=== PATIENT | female | born 1960 | race Caucasian/White ===

== ENCOUNTER 2024-11-21 08:55 | Outpatient (CLI) | payer OTHER, SELFPAY ==
--- OUTSIDE RECORDS SUMMARY | 2024-11-21 09:22 | XMS_ITS | CONTINUITY OF CARE DOCUMENT ---
Author Name stephencolbyjamaica Address Unknown Organization [facility] Address [address] [address] [place] [address] Phone [phone] Care Team Providers Care Supervisor Metal Cans Name Role Phone Shayan CORREA, Tameka Unavailable Shayan CORREA, Tameka Unavailable [phone] NAMRATA CORREA, JENSEN Unavailable [phone] INSURANCE PROVIDERS Payer name Policy type / Coverage type Shepherd red libertarian ID [facility] [employer] [id number]
--- NOTE | 2024-11-21 09:58 | ECG_ITS ---
Test Date: 2024-11-21 10:25:46 Measurements Intervals Batson Rate: 63 P: 53 NM: 169 QRS: 38 QRSD: 92 T: 75 QT: 406 QTc: 418 Interpretive Statements SINUS RHYTHM NONSPECIFIC T-WAVE ABNORMALITY No previous ECG available for comparison Electronically Signed On 11-21-2024 16:34:00 BEET END SUPERVISOR by Jl Estrada M.D.
[2024-11-21 10:41] LABS: Basophils Absolute Auto 0.1 K/mm3 (0.0-0.1); Basophils Percent Auto 0.8 % (0.2-1.2); Eosinophils Absolute Auto 0.6 K/mm3 (0-0.3); Eosinophils Percent Auto 6.4 % (0-4.4); Hematocrit 46.6 % (37.0-47.0); Hemoglobin 14.9 g/dL (12.0-15.0); Immature Granulocyte Absolute 0.04 K/mm3 (0.00-0.031); Immature Granulocyte Percent A 0.4 % (0-0.5); Lymphocytes Absolute Auto 3.32 K/mm3 (0.9-3.2); Mean Platelet Volume 10.3 fl (7.4-10.4); Monocytes Absolute Auto 0.5 K/mm3 (0.1-0.6); Monocytes Percent Auto 5.5 % (2.6-8.5); Neutrophils Absolute Auto 4.7 K/mm3 (1.3-6.7); Neutrophils Percent Auto 50.9 % (45.5-73.1); Platelet Count Result 373 k/mm3 (150-375); Red Blood Count 4.96 M/mm3 (4.2-5.4); Red Cell Distribution Width 14.1 % (11.5-14.5); White Blood Count 9.2 K/mm3 (4.5-10.0)
[2024-11-21 11:08] LABS: Urine Cotinine NEGATIVE
[2024-11-21 11:10] LABS: Hemoglobin A1C 5.6 % (<5.7)
[2024-11-21 15:35] LABS: Albumin Level 3.9 g/dL (3.5-5.1); Anion Gap 8 mmol/L (4-12); Blood Urea Nitrogen 31 mg/dL (7-17); Calcium 9.1 mg/dL (8.4-10.2); Carbon Dioxide 27 mmol/L (22-30); Chloride 106 mmol/L (98-107); Estimated Glomerular Filt Rate 57; Glucose 84 mg/dL (65-110); Potassium 4.2 mmol/L (3.4-5.0); Sodium 141 mmol/L (137-145)
== END 2024-11-21 08:56 | disposition home or self-care (01) ==
LOC: ANHSURGERY 08:59
PROVIDERS: PCP Family Medicine; Visit Provider Orthopaedic Surgery
DX: Z01.818 Encounter for other preprocedural examination (principal); M16.12 Unilateral primary osteoarthritis, left hip; R94.31 Abnormal electrocardiogram [ECG] [EKG]
CPT/HCPCS: 80048; 80307; 82040; 83036; 85025; 86850; 86900; 86901; 87081; 87181; 93005

== ENCOUNTER 2024-12-02 16:15 | Inpatient (IN) | payer OTHER, SELFPAY ==
[2024-11-21 09:15] VITALS: BMI 34.2
--- NOTE | 2024-11-21 09:35 | PC.NURSE ---
Report to the Outpatient Waiting Room, entrance under the green pavilion located off [facility], at time __6:00AM on date ___12/01/24____. Planned Procedure Time: __7:30AM .? Time changes happen often and if your time is changed the preop area will call you the afternoon before. - You and your visitor will be asked to self-screen and do not enter if you have any COVID symptoms. Please call surgeon if you need to reschedule. - A mask is optional within the hospital at this time. Patients may have clear liquids (water, carbonated beverages, clear teas, apple juice) until 3 hours prior to surgery (4:30AM) with a maximum of 20 ounces. - No food from midnight until time of surgery and no smoking, or chewing tobacco (or any form of nicotine). No chewing gum, candy or mints. Take only the following medications with a SIP of water on the morning of surgery: ___AMLODIPINE, FLUOXETINE DO NOT STOP ANY OF YOUR OTHER PRESCRIPTION MEDICATIONS PRIOR TO SURGERY EXCEPT THE FOLLOWING Hold all vitamins and supplements for 3 days per anesthesiologist. Medications to discontinue per physician HOLD IBUPROFEN (NSAIDS) 7 DAYS PRE-OP PER DR HUDSON Date to take last dose 11/23/24 Please no make-up, nail french, hairspray, perfume, deodorant, or body powder the day of surgery.? No jewelry (including any body piercings) or valuables the day of surgery, leave them at home.? Please take a shower or bath the night before, or the morning of, surgery with an antibacterial soap.? Wear comfortable, loose fitting clothing.? - Jewelry must be removed prior to entering the operating room.? Rings and piercings that are not removed may be cut off. - The hospital will not accept responsibility for valuables.? - Please leave all valuables, including medications, at home the day of surgery. If you are going home after surgery, a licensed buggy driver must drive you home.? - NO public transportation without another adult if you receive anesthesia. - We recommend that an adult stay with you for 24 hours following discharge. - We also recommend that you do not drive, make important decision, drink alcoholic beverages, or take any drugs that were not prescribed by your health care provider for at least 24 hours after your discharge time. Follow any additional instructions given to you from your surgeon. HIBICLENS SHOWER NIGHT BEFORE AND MORNING OF SURGERY. Telephone instructions given to ___PATIENT and asked if any additional questions and then verbalized understanding. Patient advised to call surgeon office or pre surgery nurse liaison [phone] if any additional questions.
[2024-11-21 10:02] VITALS: BP 148/88; PULSE 68; RESP 16; TEMP 37; O2SAT 95
--- NOTE | 2024-11-28 11:21 | PM.IMHP ---
H&P: HPI History of Present Illness Date/Time: 11/28/24 11:21 Chief Complaint: DJD left hip Narrative: 62-year-old female who presents today for left anterior total hip arthroplasty. She has had severe osteoarthritis in this left hip for more than 3 years. She has been treating nonsurgically with bldn-qlr-[id number] anti-inflammatories. At this point patient is having more significant symptoms on a daily basis. Hip pain is causing her to avoid activities due to the pain. This point patient has advanced osteoarthritis in the left hip. She feels this point she is ready proceed with total hip arthroplasty rather than continue nonsurgical treatment. Review of Systems Review of Systems: All systems reviewed & are unremarkable except as noted in HPI and below PMFSH Past Medical History Medical History Primary osteoarthritis of left hip Cigarette nicotine dependence Major depressive disorder, recurrent severe without psychotic features Primary hypertension Surgical History Surgical History History of intestinal surgery 2013 for bowel obstruction History of hysterectomy 1995 Family History Family History Sibling Cerebrovascular accident Social History Social History Smoking packs per day: 1 Smoking cigarettes per day: 20.0 Years smoked: 52 Smoking pack-years: 52.00 Smoking status: Former smoker Tobacco type: cigarettes Smoking end date: 10/24/24 Additional smoking assessment comments: NON-NICTONE VAPE X6/DAY Alcohol intake: never Alcohol use details: SOCIAL DRINKER IN PAST Substance use: current Substance use type: marijuana Other substance usage details: SMOKES MARIJUANA NIGHTLY Do You Feel Safe in your Home?: Yes Lack of Transportation: No Lack of Food: Sometimes True Current Housing: I Have Housing Concerned About Future Housing: No Difficulty Paying Gas/Electric Bills: No Difficulty Paying for Meds: No Currently Unemployed: No Education: High School Diploma/GED Difficulty w/ Childcare or Family Care: No Living arrangements: with family Additional living arrangements comments: [place] Occupation/Education: retired Gender identity (if verbalized by the patient): Female Sexual Orientation (if Verbalized by the Patient): Straight or Heterosexual Spiritual care concerns: No Meds Home Medications and Allergies Home Medications ?Medication ?Instructions ?Recorded ?Confirmed ?Type amlodipine 5 mg tablet 5 mg PO DAILY #90 tabs 10/31/24 11/25/24 Rx fluoxetine 20 mg capsule 20 mg PO DAILY #90 caps 10/31/24 11/25/24 Rx lisinopril 10 mg tablet 10 mg PO DAILY #90 tabs 10/31/24 11/25/24 Rx ibuprofen 800 mg tablet 800 mg PO TID PRN pain #90 tabs 11/06/24 11/25/24 Rx mupirocin 2 % topical ointment 1 applic topical BID #22 grams 11/24/24 11/25/24 Rx Allergies Allergy/AdvReac Type Severity Reaction Status Date / Time Penicillins Allergy Unknown Hives, Verified 11/25/24 13:45 FACE SWELLING Exam Narrative: 64-year-old female she is 5 ft 6 203 lb BMI is 32.3. Patient walks with a prominent limp. She has a 15 degree flexion contracture at in the left knee as well as a valgus deformity. She also has a 15 degree flexion contracture of the left hip. She has a positive Stinchfield maneuver which causes her severe anterior lateral hip pain. Left hip flexes to 60 internally rotates to 0 externally rotates to 20 all with anterior lateral hip pain. She has normal abduction strength in lateral position. Moderate to severe tenderness over the greater trochanter. Skin around the hip and groin crease are normal. 2+ dorsalis pedis and posterior tibial artery pulse palpable. No edema in lower extremities Resp: Auscultation: clear to auscultation bilaterally Cardio: Rate: regular rate Rhythm: regular rhythm Assessment and Plan Assessment and plan (1) Primary osteoarthritis of left hip: Code(s): M16.12 - Unilateral primary osteoarthritis, left hip Status: Acute Plan 64-year-old female who has advanced osteoarthritis left hip. At this point patient is having severe symptoms on a daily basis and feels she is ready proceed with total hip arthroplasty at this point. Surgical procedures well as the risks and complications were discussed in detail questions were answered and we will proceed. Patient will stop her ibuprofen and any other aspirin products 1 week prior to surgery. She will see her primary care doctor for pre-surgical clearance. Her nasal swab did grow oxacillin sensitive Staph aureus and she has been D colonizing. Hemoglobin 14.9 platelets are 373. Chem panel her BUN was elevated at 31 creatinine 0.99 GFR was 57
[2024-12-01] VITALS (15 sets, daily range): BP systolic 103–146; BP diastolic 64–83; PULSE 74–96; RESP 14–28; TEMP 36.2–36.9; O2SAT 92–100; BMI 36.2
--- OUTSIDE RECORDS SUMMARY | 2024-12-01 00:23 | XMS_ITS | CONTINUITY OF CARE DOCUMENT ---
Author Name stephencolbyjamaica Address Unknown Organization [facility] Address [address] [place] [address] Phone [phone] Care Team Providers Care Attendance Officer Name Role Phone Shayan CORREA, Tameka Unavailable [phone] Shayan CORREA, Tameka Unavailable NAMRATA CORREA, JENSEN Unavailable INSURANCE PROVIDERS Payer name Policy type / Coverage type Camilla red republican ID [facility] [employer] company [id number]
[2024-12-01] MEDS: VANCOMYCIN 1,500 MG/NS 500 ML 1,500 MG/500 ML BAG 250 MG IVPB (06:45)
[2024-12-01] MEDS: ACETAMINOPHEN 500 MG TABLET 1000 MG PO (06:45)
[2024-12-01] MEDS: LACTATED RINGERS 1,000 ML 30 ML IV CONT ×2 (06:45→12:30)
[2024-12-01] MEDS: TRANEXAMIC ACID 1,000MG/ISO100 1,000 MG/100 ML BAG 200 MG IVPB (06:45)
--- NOTE | 2024-12-01 07:16 | WPDHPUPDATE1 ---
History and Physical Update Update Date/Time: 12/01/24 07:16 History and Physical has been reviewed, including an updated exam of the patient. There are NO changes in the patient's condition. Risks, benefits, and alternatives have been discussed and questions answered. Patient agrees to proceed with procedure.
--- NOTE | 2024-12-01 07:28 | P.PNAN_ITS ---
Anes - Initial Pre Proc Eval Procedure: Operation Date: 12/01/24 07:30 Proposed Procedures p Left Total Hip Arthroplasty, Anterior Approach - Graham Domingo MD Date/Time: 12/01/24 07:28 Surgeon: Graham Domingo MD Pre Op Diagnosis: O A Lt Hip Patient Data Age: 64 Gender: F Height: 1.65 m Weight: 98.8 kg Last Vital Signs Temp 98.5 F 12/01/24 06:45 Pulse 74 12/01/24 06:45 Resp 14 12/01/24 06:45 BP 136/83 12/01/24 06:45 Pulse Ox 100 12/01/24 06:45 O2 Del Method Room Air 12/01/24 06:45 Allergies Allergy/AdvReac Type Severity Reaction Status Date / Time Penicillins Allergy Unknown Hives, Verified 12/01/24 07:22 FACE SWELLING Home Medications ?Medication ?Instructions ?Recorded ?Confirmed ?Type amlodipine 5 mg tablet 5 mg PO DAILY #90 tabs 10/31/24 12/01/24 Rx fluoxetine 20 mg capsule 20 mg PO DAILY #90 caps 10/31/24 12/01/24 Rx lisinopril 10 mg tablet 10 mg PO DAILY #90 tabs 10/31/24 12/01/24 Rx ibuprofen 800 mg tablet 800 mg PO TID PRN pain #90 tabs 11/06/24 12/01/24 Rx mupirocin 2 % topical ointment 1 applic topical BID #22 grams 11/24/24 11/25/24 Rx Patient hx anesthesia problems: none Family hx anesthesia problems: none Results Review: All pre-operative results and documents have been reviewed as part of the pre- operative evaluation. [facility]LY [facility], [facility] Past Medical History Medical History Primary osteoarthritis of left hip Cigarette nicotine dependence Major depressive disorder, recurrent severe without psychotic features Primary hypertension Surgical History Surgical History History of intestinal surgery 2013 for bowel obstruction History of hysterectomy 1995 Family History Family History Sibling Cerebrovascular accident Social History Social History Smoking packs per day: 1 Smoking cigarettes per day: 20.0 Years smoked: 52 Smoking pack-years: 52.00 Smoking status: Former smoker Tobacco type: cigarettes Smoking end date: 10/24/24 Additional smoking assessment comments: NON-NICTONE VAPE X6/DAY Alcohol intake: never Alcohol use details: SOCIAL DRINKER IN PAST Substance use: current Substance use type: marijuana Other substance usage details: SMOKES MARIJUANA NIGHTLY Do You Feel Safe in your Home?: Yes Lack of Transportation: No Lack of Food: Sometimes True Current Housing: I Have Housing Concerned About Future Housing: No Difficulty Paying Gas/Electric Bills: No Difficulty Paying for Meds: No Currently Unemployed: No Education: High School Diploma/GED Difficulty w/ Childcare or Family Care: No Living arrangements: with family Additional living arrangements comments: [employer] Occupation/Education: retired Gender identity (if verbalized by the patient): Female Sexual Orientation (if Verbalized by the Patient): Straight or Heterosexual Spiritual care concerns: No Anes - Eval Final PreProcedure Day of Procedure 12/01/24 07:28 Patient weight: obese Heart: regular rate and rhythm Lungs: clear to auscultation Airway: Mallampati scale class II Neurological: alert and oriented Last oral intake: >/= 8 hours ASA classification: III Emergent: no Anesthetic plan: proceed Anesthesia type and monitoring: general ETT and standard monitoring Results Review: All pre-operative results and documents have been reviewed as part of the pre-operative evaluation. Informed Consent: The patient's anesthetic plan and its attendant risks and benefits were discussed with the patient/family/POA. Questions were solicited and answers provided to the satisfaction of the patient/family/POA.
[2024-12-01] MEDS: ceFAZolin 2 GM/D5W 50 ML 2 GM/50 ML BAG IVPB ×2 (07:34→17:40)
[2024-12-01] MEDS: ceFAZolin SODIUM 1 GM VIAL 3 GM (08:46)
[2024-12-01] MEDS: SODIUM CHLORIDE 0.9% IV 37.7 ML, MORPHINE SULFATE INJ (*CRX) 2 MG, ROPivacaine HCL 1% 2... INFILTRATE (08:47)
[2024-12-01] MEDS: ceFAZolin SODIUM 1 GM VIAL 2 GM IV PUSH (11:52)
[2024-12-01] MEDS: TRANEXAMIC ACID 1,000 MG/10 ML AMPUL 1000 MG IV PUSH (11:54)
[2024-12-01] MEDS: KETOROLAC 15 MG/ML VIAL (*BKC) IV PUSH ×2 (11:55→18:27)
[2024-12-01] MEDS: LACTATED RINGERS 1,000 ML 20 ML IV CONT (12:30)
--- NOTE | 2024-12-01 13:00 | PM.OP ---
Procedure Note - Brief Procedure Note - Brief Date of procedure: 12/01/24 O A Lt Hip Procedure performed: Left anterior total hip arthroplasty Surgeon: JEAN Reno Findings: 62-year-old female who underwent left anterior total hip arthroplasty on 12/01. I was involved in the procedure including positioning the patient on the OR table and 1st assisting through the time surgery. Total time spent was 4 hours
--- NOTE | 2024-12-01 13:14 | W.PM.PROC2 ---
Procedure Note - Detailed Date of Procedure 12/01/24 Pre-op Diagnosis O A Lt Hip, obesity with BMI of Post-op Diagnosis Same Procedure Performed Direct anterior approach left total hip arthroplasty Surgeon Graham Domingo MD Verifying Specialist Marnie Anesthesia General Description of Procedure There is extra difficulty with the procedure due to her obesity which added approximately 1 hour of surgical time to the procedure. Patient was brought to the operating room and general anesthesia was administered. She received 2 g of Ancef weight based vancomycin 1 g of TXA preoperatively. The feet were padded boots applied SCDs were applied and running during the procedure. She was transferred to the [facility] table. The left hip was prepped and draped in the usual fashion a 10 cm longitudinal incision was made starting 3 cm lateral to the ASIS. Dissection was carried down to the fascia over the tensor fascia bonnie which was longitudinally incised elevated off the anterior 50% of the TFL muscle. The interval between tensor fascia bonnie and rectus femoris was developed and crossing branches of ascending lateral femoral circumflex vessels were isolated ligated with suture divided. The capsule was markedly distended with fluid. She had prominent ileocapsularis on the anterior capsule which was carefully elevated and retractor placed anteromedial to the capsule. The hip abducted and the gluteus minimus was elevated off the lateral capsule which was difficult because of the distention of the capsule. Inverted T capsulotomy was performed. There is a large effusion of yellow fluid. There was thickened edematous synovium which was moderately erythematous making me suspicious that she may have an inflammatory arthritis such as rheumatoid arthritis and we will test her after surgery. Femoral neck osteotomy was performed. The femoral head was markedly enlarged at its periphery due to osteophyte formation which made extraction more difficult. I removed the the distal 40% of the femoral head piecemeal which allowed us to slide the thinner wait for out the anterior incision. There was severe wear on the femoral head. The acetabulum showed eburnation posteriorly and superiorly with absence of the posterior and posterior superior rim. The posterior wall was intact. The femur was externally rotated extended allowing better access to the femoral insertion of the lateral capsule which was released and interval between conjoined tendon and piriformis tendon was incised which allowed the piriformis to flip which improved the femoral mobility quite a bit. With the leg back in the horizontal position traction external rotation acetabulum was exposed labrum excised we medialized through the large medial acetabular osteophyte with a 44 Reamer and reamed up to 51 and a light reaming to 52 which reached the anterior rim. Reaming was carried out under fluoroscopic guidance. We had removed some of the anterior and anterior inferior osteophyte earlier. Trial 52 shell fit properly. At proper anteversion it tucked just under the anterior rim and was about 6 or 7 mm proud posterior superiorly at 40? of abduction. I could see that we could medialized an additional 1-2 mm and we inserted the 51 Reamer to accomplish this. The 52 pinnacle shell was chosen and impacted and fully seated at 40? of abduction and appropriate anteversion which left a shell about 3 or 4 mm under the anterior rim and about 7 mm proud of the posterior superior remnant of posterior wall as the posterior superior rim was deficient in that area. An excellent Press-Fit was achieved. The cancellous bone within the acetabulum was somewhat soft but the rim was sclerotic and the rim fit was solid. Two screws were placed in the ilium for additional fixation both achieving excellent purchase. Thirty-six inner diameter acetabular liner was placed. The leg was externally rotated and extended with the table hook for exposure. The cancellous bone within the femur was extraordinarily soft particularly laterally under the greater trochanter. It compressed fully with light digital pressure in fact. Cortical thickness of the medial calcar was normal for age. We broached up to a size 7 which still had a fair amount of rotational play. The size 8 was difficult to seat fully as it impinged in the intramedullary canal distally. The size 4 5 canal Reamer was inserted to a little past full depth and with this accomplished, the size 8 broach could be seated to the anticipated depth. On trialing I could see that we were still about 4 or 5 mm proud of our templated broach height and the hip was tight. We planned to use the size 1.5 head on the standard neck to restore proper offset. The broach was countersunk 5 mm and on read trialing, leg lengths were appropriate with the left leg appearing about 1 or 2 mm longer than the right and since the right hip had icjh-[id number] contact superiorly, this was felt to be appropriate length estimation. She had complete stability and ample shock. The 8 broach had complete torsional stability. We completed the calcar planing process and inserted the size 8 Actis stem which was fully seated without difficulty no cracks in the calcar. I elected to use cancellous bone from the femoral head to fill the void lateral to the proximal shoulder of the femoral component to hopefully improve bone stock in this area. The 1.5 x 36 ceramic head was impacted on the clean and dried trunnion which was then reduced after thorough irrigation with antibiotic solution. Stability and soft tissue tension confirmed. Final fluoroscopic x-rays of the hip showed no radiographic complication. The anterior capsular flap was allowed to rest insight to as we had resected the majority of the lateral flap for exposure. The fascia over the tensor fascia bonnie repaired with running 1. Vicryl drain deep in the subcu skin closed with 2 subcutaneous Vicryl and glue EBL was 500 cc and she was given 250 back as Cell Saver. Additional 2 g of Ancef and 1 g TXA given time wound closure. There were no complications. She was transferred postop recovery room in stable condition. [facility] Billing Surgery - Charge Forward: Surgery Billing (Left total hip arthroplasty. Extra difficulty due to obesity.)
[2024-12-01] MEDS: fentaNYL CITRATE INJ (*CRX) 100 MCG/2 ML VIAL 25 MCG IV PUSH (13:26)
[2024-12-01] MEDS: ACETAMINOPHEN 325 MG TABLET 650 MG PO ×3 (17:07→21:12)
[2024-12-01] MEDS: oxyCODONE HCL (*CRX) 5 MG TAB IR PO ×2 (17:07→18:28)
[2024-12-01] MEDS: SENNA/DOCUSATE SODIUM TABLET 2 TAB PO (17:07)
[2024-12-01] MEDS: VANCOMYCIN 1,000 MG/NS 250 ML 1,000 MG/250 ML BAG 250 MG IVPB (18:29)
[2024-12-01] MEDS: FAMOTIDINE 20 MG TABLET PO (21:13)
[2024-12-02] VITALS (10 sets, daily range): BP systolic 105–138; BP diastolic 67–89; PULSE 73–90; RESP 16–20; TEMP 35.7–37.2; O2SAT 92–95
--- NOTE | ~2024-12-02 | XR_ITS ---
EXAMINATION: XR chest 1V portable DATE: 12/03/2024 10:55 INDICATION: Shortness of breath and increasing oxygen requirement TECHNIQUE: frontal view of the chest was obtained. COMPARISON: Chest radiograph dated 12/02/2024 FINDINGS: There are persistent focal airspace opacities at the medial aspect of the bilateral lower lung zones with slight worsening on the left. No pulmonary edema, pleural effusion or pneumothorax. Heart size i s normal. Moderate to severe degenerative skeletal changes at the spine and bilateral shoulders. IMPRESSION: 1. Persistent airspace opacities in the bilateral lower lung zones with slight progression on the lef t which could represent atelectasis and/or pneumonia. Reviewed, dictated and finalized at location A. IMPRESSION: 1. Persistent airspace opacities in the bilateral lower lung zones with slight progression on the left which could represent atelectasis and/or pneumonia.
--- NOTE | ~2024-12-02 | XR_ITS ---
XR chest 1V portable 12/02/2024 10:45 Indication: New oxygen demand. Procedure: AP portable chest Comparison: No prior studies for comparison. Findings: Shallow inspiration. Bibasilar airspace disease, compatible with pneumonia. No pleural effu adriana, edema or pneumothorax. Heart size normal. Impression: 1: Bibasilar pneumonia. Reviewed, dictated and finalized at location B. Impression: 1: Bibasilar pneumonia.
--- NOTE | ~2024-12-02 | XR_ITS ---
XR hip LT 1V w AP pelvis Ordering provider: Graham Domingo MD History: . POST OP LEFT ANTERIOR APPROACH HIP . Comparison: None. FINDINGS: BONES: No acute fracture or dislocation. HIP JOINT SPACES: Left hip arthroplasty. Severe right hip osteoarthritic changes. PUBIC SYMPHYSIS: Normal. SOFT TISSUES: Normal. IMPRESSION: No acute osseous abnormality pelvis and left hip area. Left hip arthroplasty. Severe right hip osteoa rthritic changes. Reviewed, dictated and finalized at location A. IMPRESSION: No acute osseous abnormality pelvis and left hip area. Left hip arthroplasty. S evere right hip osteoarthritic changes.
--- NOTE | ~2024-12-02 | XR_ITS ---
EXAMINATION: XR surgery orthopedic DATE: 12/01/2024 12:35 INDICATION: Anterior approach left total hip arthroplasty TECHNIQUE: 3 fluoroscopic images of the left hip were obtained during procedure performed by Dr. Rachna olivo. Radiologist was not present for the imaging or procedure. The amount of fluoroscopy time used du ring this procedure was 0.9 minutes. COMPARISON: 11/04/2023 FINDINGS: Interval resection of the left femoral head and neck and placement of a noncemented left total hip ar throplasty which appears well seated in near-anatomic alignment in the frontal projection. The acetab ular component is affixed with at least 2 screws. No fracture noted visualized bones. Expected lucent soft tissue gas at the operative bed. IMPRESSION: 1. Fluoroscopy utilized during placement of a noncemented left total hip arthroplasty with expected a ppearance. Reviewed, dictated and finalized at location A. IMPRESSION: 1. Fluoroscopy utilized during placement of a noncemented left total hip arthro plasty with expected appearance.
[2024-12-02] MEDS: ceFAZolin 2 GM/D5W 50 ML 2 GM/50 ML BAG IVPB ×2 (00:32→05:48)
[2024-12-02] MEDS: KETOROLAC 15 MG/ML VIAL (*BKC) IV PUSH (00:33)
[2024-12-02] MEDS: oxyCODONE HCL (*CRX) 5 MG TAB IR PO ×4 (00:33→14:31)
[2024-12-02] MEDS: VANCOMYCIN 1,000 MG/NS 250 ML 1,000 MG/250 ML BAG 250 MG IVPB (05:47)
[2024-12-02] MEDS: ACETAMINOPHEN 325 MG TABLET 650 MG PO ×5 (05:48→22:12)
[2024-12-02 06:46] LABS: Basophils Percent Auto 0.4 % (0.2-1.2); Eosinophils Percent Auto 0.1 % (0-4.4); Hematocrit 37.1 % (37.0-47.0); Hemoglobin 11.6 g/dL (12.0-15.0); Immature Granulocyte Absolute 0.02 K/mm3 (0.00-0.031); Immature Granulocyte Percent A 0.3 % (0-0.5); Lymphocytes Absolute Auto 2.13 K/mm3 (0.9-3.2); Lymphocytes Percent Auto 27.3 % (18.3-44.2); Mean Corpuscular HGB Conc 31.3 g/dl (32-36); Mean Corpuscular Hemoglobin 30.4 pg (26-34); Mean Corpuscular Volume 97.1 fl (80-100); Mean Platelet Volume 10.6 fl (7.4-10.4); Monocytes Absolute Auto 0.5 K/mm3 (0.1-0.6); Monocytes Percent Auto 6.3 % (2.6-8.5); Neutrophils Absolute Auto 5.1 K/mm3 (1.3-6.7); Neutrophils Percent Auto 65.6 % (45.5-73.1); Platelet Count Result 304 k/mm3 (150-375); Red Blood Count 3.82 M/mm3 (4.2-5.4); Red Cell Distribution Width 14.2 % (11.5-14.5); White Blood Count 7.8 K/mm3 (4.5-10.0)
--- NOTE | 2024-12-02 06:56 | PM.PNORT ---
Subjective Subjective Date/Time Seen: 12/02/24 06:56 Interval history: Postop day 1 patient is alert. She is afebrile vital signs are stable. Cbc is noted. Chem panel still pending also rheumatoid factor and anti CCP are pending. Patient's drain is out. Dressing was changed. Neurovascularly she is intact.. Patient has been up to the restroom overnight and is comfortable. She did not walk with therapy yesterday, she was not alert enough from anesthesia for them to be comfortable having her try to walk yesterday. This morning she is alert and very clear headed. Plan will be to have the pain therapy this morning and if she is comfortable she will be discharged home late this morning. If she feels she needs additional they until this afternoon and work again with therapy and then be discharged this afternoon. Objective Data Vital Signs Vital Signs: Vital Signs - 24 hr 12/01/24 12:30 12/01/24 12:45 12/01/24 13:00 Temperature 97.5 F L Pulse Rate 96 94 93 Respiratory Rate 28 H 21 H 21 H Blood Pressure 146/76 H 126/72 120/69 Pulse Oximetry 93 94 94 Oxygen Delivery Simple Face Mask Simple Face Mask Simple Face Mask Oxygen Flow Rate 6 6 6 12/01/24 13:15 12/01/24 13:30 12/01/24 13:45 Temperature Pulse Rate 88 90 91 Respiratory Rate 22 H 20 18 Blood Pressure 108/70 106/65 109/64 Pulse Oximetry 94 96 94 Oxygen Delivery Simple Face Mask Room Air Room Air Oxygen Flow Rate 6 12/01/24 14:00 12/01/24 14:15 12/01/24 14:55 Temperature 97.5 F L Pulse Rate 89 90 89 Respiratory Rate 14 20 18 Blood Pressure 106/71 113/69 113/64 Pulse Oximetry 92 94 92 Oxygen Delivery Nasal Cannula Nasal Cannula Oxygen Flow Rate 2 2 12/01/24 15:10 12/01/24 15:40 12/01/24 16:13 Temperature 97.1 F L 97.4 F L 97.3 F L Pulse Rate 83 87 86 Respiratory Rate 16 16 16 Blood Pressure 103/65 120/75 118/72 Pulse Oximetry 93 95 94 Oxygen Delivery Oxygen Flow Rate 12/01/24 16:28 12/01/24 20:13 12/02/24 00:13 Temperature 97.3 F L 97.6 F Pulse Rate 87 83 81 Respiratory Rate 16 18 18 Blood Pressure 108/71 111/71 Pulse Oximetry 95 93 94 Oxygen Delivery Nasal Cannula Oxygen Flow Rate 2 12/02/24 04:13 Temperature 96.7 F L Pulse Rate 90 Respiratory Rate 18 Blood Pressure 138/89 Pulse Oximetry 92 Oxygen Delivery Oxygen Flow Rate Intake/Output Intake/Output: Intake & Output 11/29/24 11/30/24 12/01/24 12/02/24 23:59 23:59 23:59 23:59 Intake Total 800 50 Output Total 30 900 Balance 770 -850 Meds/Results Medications: Active Medications Generic Name Dose Route Start Last Admin Trade Name Freq PRN Reason Stop Dose Admin Acetaminophen 650 mg 12/01/24 14:00 12/02/24 05:48 Acetaminophen 325 Mg Tablet PO 650 mg Q4H JENNIFER Administration Amlodipine Besylate 5 mg 12/02/24 09:00 Amlodipine Besylate 5 Mg Tablet PO DAILY JENNIFER Apixaban 2.5 mg 12/02/24 09:00 Apixaban 2.5 Mg Tablet PO Q12HR JENNIFER Celecoxib 200 mg 12/02/24 09:00 Celecoxib 200 Mg Capsule PO DAILY JENNIFER Cephalexin HCl 500 mg 12/02/24 12:00 Cephalexin 500 Mg Capsule PO Q6HR JENNIFER Diphenhydramine HCl 25 mg 12/01/24 14:28 Diphenhydramine Hcl Inj 50 Mg/Ml Vial IV PUSH Q6H PRN Itching Famotidine 20 mg 12/01/24 21:00 12/01/24 21:13 Famotidine 20 Mg Tablet PO 20 mg Q12HR JENNIFER Administration Fluoxetine HCl 20 mg 12/02/24 09:00 Fluoxetine Hcl 20 Mg Capsule PO DAILY JENNIFER Cefazolin Sodium 2 gm in 50 mls @ 100 mls/hr 12/01/24 15:00 12/02/24 05:48 Ancef 2 Gm/D5w 50 Ml IVPB 12/02/24 07:29 100 mls/hr Q8H JENNIFER Administration Vancomycin HCl 1,000 mg in 250 mls @ 250 mls/hr 12/01/24 18:00 12/02/24 05:47 Vancomycin 1,000 Mg/Ns 250 Ml IVPB 12/02/24 06:59 250 mls/hr Q12H JENNIFER Administration Morphine Sulfate 2 mg 12/01/24 14:28 Morphine Sulfate (*Crx) 2 Mg/Ml Inj IV PUSH Q2H PRN Breakthrough Pain Rated 4-6 or NPO Naloxone HCl 0.1 mg 12/01/24 14:28 Naloxone Hcl 0.4 Mg/Ml Vial IV PUSH Q2M PRN Opiate Reversal Ondansetron HCl 4 mg 12/01/24 14:28 Ondansetron Inj 4 Mg/2 Ml Vial IV PUSH Q4H PRN Nausea And Vomiting Oxycodone HCl 5 mg 12/01/24 15:00 12/02/24 05:51 Oxycodone Hcl (*Crx) 5 Mg Tab Ir PO 5 mg Q4H JENNIFER Administration Oxycodone HCl 5 mg 12/01/24 14:28 Oxycodone Hcl (*Crx) 5 Mg Tab Ir PO Q4H PRN Pain Rated 7-10 Polyethylene Glycol 17 gm 12/02/24 09:00 Polyethylene Glycol 3350 17 Gm Powd.Pack PO QAM JENNIFER Senna/Docusate Sodium 2 tab 12/01/24 17:00 12/01/24 17:07 Senna/Docusate Sodium Tablet PO 2 tab BID JENNIFER Administration Radiology Results: ITS Impressions Hip/Pelvis X-Ray 12/01/24 12:57 IMPRESSION: No acute osseous abnormality pelvis and left hip area. Left hip arthroplasty. Severe right hip osteoarthritic changes. Intraoperative X-Ray 12/01/24 13:00 IMPRESSION: 1. Fluoroscopy utilized during placement of a noncemented left total hip arthroplasty with expected appearance. Labs Labs: Laboratory Results - last 24 hr 12/02/24 06:04 WBC 7.8 RBC 3.82 L Hgb 11.6 L D Hct 37.1 MCV 97.1 MCH 30.4 MCHC 31.3 L RDW 14.2 Plt Count 304 MPV 10.6 H Immature Gran % (Auto) 0.3 Neut % (Auto) 65.6 Lymph % (Auto) 27.3 [place] % (Auto) 6.3 Eos % (Auto) 0.1 Baso % (Auto) 0.4 Lymph # (Auto) 2.13 [place] # (Auto) 0.5 Eos # (Auto) 0.0 Baso # (Auto) 0.0 Abs Immat Gran (auto) 0.02 Absolute Neuts (auto) 5.1 Absolute Nucleated RBC 0.000 Nucleated RBC % 0.0
[2024-12-02 06:58] LABS: Anion Gap 6 mmol/L (4-12); Blood Urea Nitrogen 20 mg/dL (7-17); Calcium 7.9 mg/dL (8.4-10.2); Carbon Dioxide 29 mmol/L (22-30); Chloride 107 mmol/L (98-107); Estimated CRCL calculation 98 ml/min; Estimated Glomerular Filt Rate > 60; Glucose 129 mg/dL (65-110); Potassium 3.7 mmol/L (3.4-5.0); Sodium 142 mmol/L (137-145)
[2024-12-02 07:10] LABS: Rheumatoid Factor 15.3 IU/ML (<12)
[2024-12-02] MEDS: FAMOTIDINE 20 MG TABLET PO ×2 (09:38→22:13)
[2024-12-02] MEDS: polyethylene glycoL 3350 17 GM POWD.PACK PO (09:38)
[2024-12-02] MEDS: SENNA/DOCUSATE SODIUM TABLET 2 TAB PO ×2 (09:38→17:46)
[2024-12-02] MEDS: CELECOXIB 200 MG CAPSULE PO (09:39)
[2024-12-02] MEDS: APIXABAN 2.5 MG TABLET PO ×2 (09:39→22:11)
[2024-12-02] MEDS: FLUoxetine HCL 20 MG CAPSULE PO (09:40)
[2024-12-02 11:20] LABS: Alveolar/Arterial O2 Gradient 81.3 mmHg; Base Excess ABG 3.6 mEq/l (+/-2.0); Fractional Inspired Oxygen 28 %; HCO3 ABG 28.5 mEq/l (22.0-26.0); Oxygen Content ABG 15.1 %vol (16.0-22.0); Oxygen Saturation ABG 93.1 % (95.0-100.0); Oxyhemoglobin 91.7 % THb (90.0-100.0); PCO2 ABG 44.9 mmHg (35.0-45.0); PO2 ABG 65.4 mmHg (80.0-100.0); PO2 FiO2 Ratio Arterial Blood 2.34 %; Total Hemoglobin 11.7 g/dL (12.0-18.0); pH ABG 7.421 (7.350-7.450)
[2024-12-02 11:21] LABS: Device NASAL CANNULA; Modified Allen's Test Pass; Site Drawn LEFT RADIAL
--- NOTE | 2024-12-02 13:34 | P.CONIM_ITS ---
Assessment and Plan Assessment and plan (1) Primary osteoarthritis of left hip: Code(s): M16.12 - Unilateral primary osteoarthritis, left hip Status: Acute Assessment and Plan: * patient is postop day 1 from a left total hip arthroplasty with Dr. Domingo * PT and OT ordered * continue hip precautions * continue incentive spirometry while awake * continue pain control * continue Eliquis for DVT prophylaxis * full weight-bearing status (2) Pneumonia: Code(s): J18.9 - Pneumonia, unspecified organism Status: Acute Assessment and Plan: * CXR shown bibasilar pneumonia * Currently requiring 2L NC * Continue IS while awake * Duonebs ordered * Levaquin 750mg daily ordered. (3) Major depressive disorder, recurrent severe without psychotic features: Code(s): F33.2 - Major depressive disorder, recurrent severe without psychotic features Status: Acute Assessment and Plan: * continue Prozac (4) Anxiety: Code(s): F41.9 - Anxiety disorder, unspecified Status: Acute Assessment and Plan: * continue Prozac (5) Primary hypertension: Code(s): I10 - Essential (primary) hypertension Status: Acute Assessment and Plan: * blood pressure ranging 108/70 to 118/72 * continue amlodipine (6) Cigarette nicotine dependence: Qualifiers: Substance use status: uncomplicated Qualified Code(s): F17.210 - Nicotine dependence, cigarettes, uncomplicated Code(s): F17.210 - Nicotine dependence, cigarettes, uncomplicated Status: Acute Assessment and Plan: * 1 pack per day for 52 years, quit this past October. HPI Date of Consult Consult date: 12/02/24 Requesting Physician: Graham Domingo MD Primary Care Provider: Cayden Sullivan MD Consult Narrative Narrative: Jennie Cedeno is a 64 year old female with a significant past medical history of major depressive disorder, hypertension, nicotine dependence, marijuana abuse, osteoarthritis who presented for an elective left total hip arthroplasty performed by Dr. Domingo. We were consulted for medical management while inpatient. Patient states that her pain is well controlled and is rating it about 4/10. She denies any fever, chills, nausea, vomiting, diarrhea, abdominal pain, chest pain, or shortness of breath. She is currently on 2L NC. She denies any recent illness or exposure to sick contacts. Review of Systems 2 Review of Systems: All systems reviewed & are unremarkable except as noted in HPI and below PMFSH Past Medical History Medical History Osteoarthritis Anxiety Primary osteoarthritis of left hip Cigarette nicotine dependence Major depressive disorder, recurrent severe without psychotic features Primary hypertension Surgical History Surgical History History of bladder suspension procedure History of intestinal surgery 2013 for bowel obstruction History of hysterectomy 1995 Family History Family History Sibling Cerebrovascular accident Social History Social History Smoking packs per day: 20 Smoking cigarettes per day: 400.0 Years smoked: 52 Smoking pack-years: 1040.00 Smoking status: Former smoker Tobacco type: cigarettes Second hand tobacco smoke exposure: No Smoking end date: 10/24/24 Additional smoking assessment comments: NON-NICTONE VAPE X6/DAY Alcohol intake: never Alcohol use details: SOCIAL DRINKER IN PAST Substance use: never Substance use type: marijuana Other substance usage details: SMOKES MARIJUANA NIGHTLY Do You Feel Safe in your Home?: Yes Lack of Transportation: No Lack of Food: Never True Current Housing: I Have Housing Concerned About Future Housing: No Difficulty Paying Gas/Electric Bills: No Difficulty Paying for Meds: No Currently Unemployed: No Education: Don't Know Difficulty w/ Childcare or Family Care: No Living arrangements: with family Additional living arrangements comments: [facility] Occupation/Education: retired Gender identity (if verbalized by the patient): Female Sexual Orientation (if Verbalized by the Patient): Straight or Heterosexual Spiritual care concerns: No Meds Home Medications and Allergies Home Medications ?Medication ?Instructions ?Recorded ?Confirmed ?Type amlodipine 5 mg tablet 5 mg PO DAILY #90 tabs 10/31/24 12/01/24 Rx fluoxetine 20 mg capsule 20 mg PO DAILY #90 caps 10/31/24 12/01/24 Rx lisinopril 10 mg tablet 10 mg PO DAILY #90 tabs 10/31/24 12/01/24 Rx acetaminophen 325 mg tablet 650 mg (2 x 325 mg) PO Q4H #90 tabs 12/02/24 Rx apixaban 2.5 mg tablet (Eliquis) 2.5 mg PO Q12HR #70 tabs 12/02/24 Rx celecoxib 200 mg capsule (Celebrex) 200 mg PO DAILY #10 caps 12/02/24 Rx cephalexin 500 mg capsule 500 mg PO Q6HR #40 caps 12/02/24 Rx oxycodone 5 mg tablet 5 mg PO Q4H PRN pain #40 tabs 12/02/24 Rx polyethylene glycol 3350 17 gram 17 g PO QAM #30 ea 12/02/24 Rx oral powder packet (Miralax) sennosides 8.6 mg-docusate sodium 2 tab-cap (2 x 8.6-50 mg) PO BID 12/02/24 Rx 50 mg tablet (Senokot-S) #60 tabs Allergies Allergy/AdvReac Type Severity Reaction Status Date / Time Penicillins Allergy Unknown Hives, Verified 12/01/24 07:22 FACE SWELLING Vital Signs Vital Signs - 24 hr 12/01/24 13:45 12/01/24 14:00 12/01/24 14:15 Temperature Pulse Rate 91 89 90 Respiratory Rate 18 14 20 Blood Pressure 109/64 106/71 113/69 Pulse Oximetry 94 92 94 Oxygen Delivery Room Air Nasal Cannula Nasal Cannula Oxygen Flow Rate 2 2 12/01/24 14:55 12/01/24 15:10 12/01/24 15:40 Temperature 97.5 F L 97.1 F L 97.4 F L Pulse Rate 89 83 87 Respiratory Rate 18 16 16 Blood Pressure 113/64 103/65 120/75 Pulse Oximetry 92 93 95 Oxygen Delivery Oxygen Flow Rate 12/01/24 16:13 12/01/24 16:28 12/01/24 20:13 Temperature 97.3 F L 97.3 F L Pulse Rate 86 87 83 Respiratory Rate 16 16 18 Blood Pressure 118/72 108/71 Pulse Oximetry 94 95 93 Oxygen Delivery Nasal Cannula Oxygen Flow Rate 2 12/02/24 00:13 12/02/24 04:13 12/02/24 08:02 Temperature 97.6 F 96.7 F L 99.0 F Pulse Rate 81 90 88 Respiratory Rate 18 18 16 Blood Pressure 111/71 138/89 108/70 Pulse Oximetry 94 92 92 Oxygen Delivery Oxygen Flow Rate 12/02/24 09:33 12/02/24 11:51 Temperature 96.7 F L Pulse Rate 78 Respiratory Rate 20 Blood Pressure 113/68 Pulse Oximetry 92 Oxygen Delivery Nasal Cannula Oxygen Flow Rate 2 Exam 2 Narrative: General: In no acute distress, well nourished Head: atraumatic, no encephalopathy Eyes: EOMI, PERRLA, sclera clear ENT: moist mucous membranes, nasal passages clear Neck: supple, no JVD, no adenopathy, trachea midline Cardiac: Normal S1 and S2. No murmur, gallops or friction rubs, peripheral pulses intact. Respiratory: Lungs clear to auscultation, no adventitious lung sounds Gastrointestinal: soft, non-distended, non-tender, normoactive bowel sounds. : voiding without difficulty. Extremities: moves all extremities well, no edema, good ROM, strength 5/5 Skin: clean, dry, intact. No wounds or lesions. Neuro: Alert and oriented x4, cranial nerves intact, no neuro deficits. Psych: normal mood, normal affect, interactive Results Labs 12/02/24 06:04 12/02/24 06:04 Labs: Short CBC 12/02/24 Range/Units 06:04 WBC 7.8 (4.5-10.0) K/mm3 Hgb 11.6 L D (12.0-15.0) g/dL Hct 37.1 (37.0-47.0) % Plt Count 304 (150-375) k/mm3 BMP 12/02/24 06:04 Sodium 142 Potassium 3.7 Chloride 107 Carbon Dioxide 29 BUN 20 H D Creatinine 0.59 L Glucose 129 H Calcium 7.9 L Imaging Radiologist's impression: XR chest 1V portable 12/02/2024 10:45 Indication: New oxygen demand. Procedure: AP portable chest Comparison: No prior studies for comparison. Findings: Shallow inspiration. Bibasilar airspace disease, compatible with pneumonia. No pleural effusion, edema or pneumothorax. Heart size normal. Impression: 1: Bibasilar pneumonia. Reviewed, dictated and finalized at location B. LEXAMINATION: XR surgery orthopedic DATE: 12/01/2024 12:35 INDICATION: Anterior approach left total hip arthroplasty TECHNIQUE: 3 fluoroscopic images of the left hip were obtained during procedure performed by Dr. Domingo. Radiologist was not present for the imaging or procedure. The amount of fluoroscopy time used during this procedure was 0.9 minutes. COMPARISON: 11/04/2023 FINDINGS: Interval resection of the left femoral head and neck and placement of a noncemented left total hip arthroplasty which appears well seated in near- anatomic alignment in the frontal projection. The acetabular component is affixed with at least 2 screws. No fracture noted visualized bones. Expected lucent soft tissue gas at the operative bed. IMPRESSION: 1. Fluoroscopy utilized during placement of a noncemented left total hip arthroplasty with expected appearance. Reviewed, dictated and finalized at location A. Quality VTE Prophylaxis VTE prophylaxis: pharmacologic ordered Hospitalist MIPS Advance Care Plan I have confirmed that the patient's Advanced Care Plan is present, code status is documented, or surrogate decision maker is listed in patient medical record.: Yes Medication Reconciliation I have utilized all available resources to obtain, update and review the patients current medications (includes all prescriptions, OTC, herbals, cannabis, and nutritional supplements).: Yes
[2024-12-02] MEDS: CEPHALEXIN 500 MG CAPSULE PO ×2 (14:31→17:46)
[2024-12-02] MEDS: levoFLOXacin 750 MG TABLET PO (14:31)
--- NOTE | 2024-12-02 14:52 | WPDANESPN ---
Anes - Prog Note Post-Op Date/Time: 12/02/24 14:52 Cardiovascular status: normal Respiratory status: normal Airway patency: baseline Mental status: baseline Post-Op hydration status: normal Vital Signs: Last Vital Signs Temp 96.7 F L 12/02/24 11:51 Pulse 78 12/02/24 11:51 Resp 20 12/02/24 11:51 BP 113/68 12/02/24 11:51 Pulse Ox 92 12/02/24 11:51 O2 Del Method Nasal Cannula 12/02/24 09:33 O2 Flow Rate 2 12/02/24 09:33 Pain Score (VAS): 0/10 I/O: Intake & Output 12/01/24 12/02/24 12/02/24 23:59 07:59 15:59 Intake Total 500 50 600 Output Total 0 900 Balance 500 -850 600 Laboratory Tests 12/02/24 06:04 12/02/24 06:04 12/02/24 12/02/24 06:04 10:59 WBC 7.8 RBC 3.82 L Hgb 11.6 L D Hct 37.1 MCV 97.1 MCH 30.4 MCHC 31.3 L RDW 14.2 Plt Count 304 MPV 10.6 H Immature Gran % (Auto) 0.3 Neut % (Auto) 65.6 Lymph % (Auto) 27.3 [place] % (Auto) 6.3 Eos % (Auto) 0.1 Baso % (Auto) 0.4 Lymph # (Auto) 2.13 [place] # (Auto) 0.5 Eos # (Auto) 0.0 Baso # (Auto) 0.0 Abs Immat Gran (auto) 0.02 Absolute Neuts (auto) 5.1 Absolute Nucleated RBC 0.000 Nucleated RBC % 0.0 Puncture Site Left radial ABG pH 7.421 ABG pCO2 44.9 ABG pO2 65.4 L ABG PO2/FiO2 Ratio 2.34 ABG HCO3 28.5 H ABG O2 Saturation 93.1 L ABG O2 Content 15.1 L ABG Base Excess 3.6 A-a Gradient 81.3 Oxyhemoglobin 91.7 Total Hemoglobin 11.7 L O2 Delivery Device Nasal cannula O2 Liters/Min 2.0 FiO2 28 Sodium 142 Potassium 3.7 Chloride 107 Carbon Dioxide 29 Anion Gap 6 BUN 20 H D Creatinine 0.59 L Estim Creat Clear Calc 98 Estimated GFR > 60 Glucose 129 H Calcium 7.9 L Rheumatoid Factor 15.3 Anti-Cycl Citrul Peptide Pending Post-procedural complaints: none Patient Feedback: Patient satisfied with anesthetic care.
[2024-12-02] MEDS: oxyCODONE HCL (*CRX) 2.5 MG TAB IR PO ×2 (17:47→22:11)
[2024-12-02] MEDS: IPRATROPIUM 0.5 MG/ALBUTEROL SULFATE 2.5 MG AMPUL.NEB 3 ML INHALATION (20:02)
[2024-12-03] VITALS (17 sets, daily range): BP systolic 105–137; BP diastolic 58–75; PULSE 75–88; RESP 12–20; TEMP 36.1–36.7; O2SAT 82–96
[2024-12-03] MEDS: CEPHALEXIN 500 MG CAPSULE PO ×5 (00:26→23:07)
[2024-12-03] MEDS: IPRATROPIUM 0.5 MG/ALBUTEROL SULFATE 2.5 MG AMPUL.NEB 3 ML INHALATION ×4 (02:03→21:00)
[2024-12-03] MEDS: ACETAMINOPHEN 325 MG TABLET 650 MG PO ×5 (06:21→23:07)
[2024-12-03] MEDS: oxyCODONE HCL (*CRX) 2.5 MG TAB IR PO ×5 (06:22→23:07)
--- NOTE | 2024-12-03 07:21 | P.PNOP_ITS ---
Subjective Subjective Date/Time Seen: 12/03/24 07:21 Interval history: Postop day 2 patient is alert. She is afebrile vital signs are stable. Pain overall is well controlled. She was up walking well with therapy yesterday. Patient was not able to maintain her oxygen saturation levels yesterday without at least 2 L of oxygen. Blood gases were done which showed her oxygen level at 64. PCO2 was within normal range. Chest x-ray shows bi basilar pneumonia. Patient was started on breathing treatments as well as Levaquin. She is encouraged use incentive spirometer every hour. Patient at this point is still on nasal cannula. Nursing will try to work on weaning her off the oxygen again today to see if she is able to maintain better oxygen saturation. When she is more stable with regard her saturation she will be discharged home Objective Data Vital Signs Vital Signs: Vital Signs - 24 hr 12/02/24 08:02 12/02/24 09:33 12/02/24 11:51 Temperature 99.0 F 96.7 F L Pulse Rate 88 78 Respiratory Rate 16 20 Blood Pressure 108/70 113/68 Pulse Oximetry 92 92 Oxygen Delivery Nasal Cannula Oxygen Flow Rate 2 12/02/24 16:09 12/02/24 20:06 12/02/24 20:10 Temperature 96.3 F L Pulse Rate 82 73 76 Respiratory Rate 18 18 18 Blood Pressure 105/68 Pulse Oximetry 92 Oxygen Delivery Oxygen Flow Rate 12/02/24 20:14 12/02/24 20:32 12/02/24 23:43 Temperature 97.2 F L 97.8 F Pulse Rate 75 79 Respiratory Rate 18 16 Blood Pressure 108/67 113/73 Pulse Oximetry 94 95 95 Oxygen Delivery Nasal Cannula Oxygen Flow Rate 4 12/03/24 02:03 12/03/24 02:09 12/03/24 03:22 Temperature 97.0 F L Pulse Rate 78 83 82 Respiratory Rate 18 18 16 Blood Pressure 137/75 Pulse Oximetry 93 Oxygen Delivery Oxygen Flow Rate Intake/Output Intake/Output: Intake & Output 11/30/24 12/01/24 12/02/24 12/03/24 23:59 23:59 23:59 23:59 Intake Total 800 960 Output Total 30 900 0 Balance 770 60 0 Meds/Results Medications: Active Medications Generic Name Dose Route Start Last Admin Trade Name Freq PRN Reason Stop Dose Admin Acetaminophen 650 mg 12/01/24 14:00 12/03/24 06:21 Acetaminophen 325 Mg Tablet PO 650 mg Q4H JENNIFER Administration Albuterol/Ipratropium 3 ml 12/02/24 14:00 12/03/24 06:05 Ipratropium 0.5 Mg/Albuterol Sulfate 2.5 Mg Ampul.Neb 3 Ml INHALATION Not Given Q6HRT JENNIFER Amlodipine Besylate 5 mg 12/02/24 09:00 12/02/24 17:52 Amlodipine Besylate 5 Mg Tablet PO Not Given DAILY [facility] Apixaban 2.5 mg 12/02/24 09:00 12/02/24 22:11 Apixaban 2.5 Mg Tablet PO 2.5 mg Q12HR JENNIFER Administration Celecoxib 200 mg 12/02/24 09:00 12/02/24 09:39 Celecoxib 200 Mg Capsule PO 200 mg DAILY JENNIFER Administration Cephalexin HCl 500 mg 12/02/24 12:00 12/03/24 06:22 Cephalexin 500 Mg Capsule PO 500 mg Q6HR JENNIFER Administration Diphenhydramine HCl 25 mg 12/01/24 14:28 Diphenhydramine Hcl Inj 50 Mg/Ml Vial IV PUSH Q6H PRN Itching Famotidine 20 mg 12/01/24 21:00 12/02/24 22:13 Famotidine 20 Mg Tablet PO 20 mg Q12HR JENNIFER Administration Fluoxetine HCl 20 mg 12/02/24 09:00 12/02/24 09:40 Fluoxetine Hcl 20 Mg Capsule PO 20 mg DAILY JENNIFER Administration Levofloxacin 750 mg 12/02/24 14:00 12/02/24 14:31 Levofloxacin 750 Mg Tablet PO 750 mg Q24H JENNIFER Administration Morphine Sulfate 2 mg 12/01/24 14:28 Morphine Sulfate (*Crx) 2 Mg/Ml Inj IV PUSH Q2H PRN Breakthrough Pain Rated 4-6 or NPO Naloxone HCl 0.1 mg 12/01/24 14:28 Naloxone Hcl 0.4 Mg/Ml Vial IV PUSH Q2M PRN Opiate Reversal Ondansetron HCl 4 mg 12/01/24 14:28 Ondansetron Inj 4 Mg/2 Ml Vial IV PUSH Q4H PRN Nausea And Vomiting Oxycodone HCl 5 mg 12/01/24 14:28 12/02/24 09:38 Oxycodone Hcl (*Crx) 5 Mg Tab Ir PO 5 mg Q4H PRN Administration Pain Rated 7-10 Oxycodone HCl 2.5 mg 12/02/24 19:00 12/03/24 06:22 Oxycodone Hcl (*Crx) 2.5 Mg Tab Ir PO 2.5 mg Q4H JENNIFER Administration Polyethylene Glycol 17 gm 12/02/24 09:00 12/02/24 09:38 Polyethylene Glycol 3350 17 Gm Powd.Pack PO 17 gm QAM JENNIFER Administration Senna/Docusate Sodium 2 tab 12/01/24 17:00 12/02/24 17:46 Senna/Docusate Sodium Tablet PO 2 tab BID JENNIFER Administration Radiology Results: ITS Impressions Hip/Pelvis X-Ray 12/01/24 12:57 IMPRESSION: No acute osseous abnormality pelvis and left hip area. Left hip arthroplasty. Severe right hip osteoarthritic changes. Intraoperative X-Ray 12/01/24 13:00 IMPRESSION: 1. Fluoroscopy utilized during placement of a noncemented left total hip arthroplasty with expected appearance. Chest X-Ray 12/02/24 10:46 Impression: 1: Bibasilar pneumonia. Labs Labs: Laboratory Results - last 24 hr 12/02/24 10:59 Puncture Site Left radial ABG pH 7.421 ABG pCO2 44.9 ABG pO2 65.4 L ABG PO2/FiO2 Ratio 2.34 ABG HCO3 28.5 H ABG O2 Saturation 93.1 L ABG O2 Content 15.1 L ABG Base Excess 3.6 A-a Gradient 81.3 Oxyhemoglobin 91.7 Total Hemoglobin 11.7 L O2 Delivery Device Nasal cannula O2 Liters/Min 2.0 FiO2 28
[2024-12-03 07:51] LABS: Basophils Absolute Auto 0.1 K/mm3 (0.0-0.1); Basophils Percent Auto 0.6 % (0.2-1.2); Eosinophils Absolute Auto 0.3 K/mm3 (0-0.3); Eosinophils Percent Auto 3.4 % (0-4.4); Hemoglobin 10.8 g/dL (12.0-15.0); Immature Granulocyte Absolute 0.01 K/mm3 (0.00-0.031); Immature Granulocyte Percent A 0.1 % (0-0.5); Lymphocytes Absolute Auto 2.23 K/mm3 (0.9-3.2); Lymphocytes Percent Auto 24.6 % (18.3-44.2); Mean Corpuscular HGB Conc 31.8 g/dl (32-36); Mean Corpuscular Hemoglobin 30.1 pg (26-34); Mean Corpuscular Volume 94.7 fl (80-100); Mean Platelet Volume 10.1 fl (7.4-10.4); Monocytes Absolute Auto 0.6 K/mm3 (0.1-0.6); Monocytes Percent Auto 6.2 % (2.6-8.5); Neutrophils Absolute Auto 5.9 K/mm3 (1.3-6.7); Neutrophils Percent Auto 65.1 % (45.5-73.1); Platelet Count Result 259 k/mm3 (150-375); Red Blood Count 3.59 M/mm3 (4.2-5.4); Red Cell Distribution Width 14.3 % (11.5-14.5); White Blood Count 9.1 K/mm3 (4.5-10.0)
[2024-12-03 08:23] LABS: Alanine Aminotransferase 14 U/L (6-35); Albumin Level 2.8 g/dL (3.5-5.1); Alkaline Phosphatase 68 U/L (38-126); Anion Gap 1 mmol/L (4-12); Aspartate Amino Transferase 35 U/L (14-36); Bilirubin,Total 0.3 mg/dL (0.2-1.3); Blood Urea Nitrogen 14 mg/dL (7-17); Calcium 7.8 mg/dL (8.4-10.2); Carbon Dioxide 34 mmol/L (22-30); Chloride 104 mmol/L (98-107); Estimated CRCL calculation 129 ml/min; Estimated Glomerular Filt Rate > 60; Glucose 99 mg/dL (65-110); Potassium 2.9 mmol/L (3.4-5.0); Sodium 139 mmol/L (137-145)
[2024-12-03] MEDS: FLUoxetine HCL 20 MG CAPSULE PO (08:36)
[2024-12-03] MEDS: FAMOTIDINE 20 MG TABLET PO ×2 (08:36→20:12)
[2024-12-03] MEDS: CELECOXIB 200 MG CAPSULE PO (08:36)
[2024-12-03] MEDS: APIXABAN 2.5 MG TABLET PO ×2 (08:36→20:11)
[2024-12-03] MEDS: amLODIPine BESYLATE 5 MG TABLET PO (08:36)
--- NOTE | 2024-12-03 09:24 | PCPTNOTE ---
Attempted to see patient for PT, however patient was working with OT.
[2024-12-03] MEDS: POTASSIUM CHLORIDE 20 MEQ ER TABLET 40 MEQ PO ×2 (11:33→14:49)
--- NOTE | 2024-12-03 12:22 | P.PNIM_ITS ---
Progress Note: A&P Assessment and Plan (1) Primary osteoarthritis of left hip: Code(s): M16.12 - Unilateral primary osteoarthritis, left hip Status: Acute Assessment and Plan: * patient is postop day 1 from a left total hip arthroplasty with Dr. Domingo * PT and OT ordered * continue hip precautions * continue incentive spirometry while awake * continue pain control * continue Eliquis for DVT prophylaxis * full weight-bearing status 12/03 * No change to current treatment plan (2) Pneumonia: Code(s): J18.9 - Pneumonia, unspecified organism Status: Acute Assessment and Plan: * CXR shown bibasilar pneumonia * Currently requiring 2L NC * Continue IS while awake * Duonebs ordered * Levaquin 750mg daily ordered. 12/03 * CXR still showing persistent airspace opacities in the bilateral lower lung zones with slight progression on the left * Currently on 5L NC * Continue IS while awake * Continue Duonebs * Continue to wean O2 for an O2 saturation greater than 92% * Respiratory panel was negative for Influenza A and B, RSV, COVID * Mucinex ordered (3) Major depressive disorder, recurrent severe without psychotic features: Code(s): F33.2 - Major depressive disorder, recurrent severe without psychotic features Status: Acute Assessment and Plan: * continue Prozac (4) Anxiety: Code(s): F41.9 - Anxiety disorder, unspecified Status: Acute Assessment and Plan: * continue Prozac (5) Primary hypertension: Code(s): I10 - Essential (primary) hypertension Status: Acute Assessment and Plan: * blood pressure ranging 108/70 to 118/72 * continue amlodipine (6) Cigarette nicotine dependence: Qualifiers: Substance use status: uncomplicated Qualified Code(s): F17.210 - Nicotine dependence, cigarettes, uncomplicated Code(s): F17.210 - Nicotine dependence, cigarettes, uncomplicated Status: Acute Assessment and Plan: * 1 pack per day for 52 years, quit this past October. Time Spent With Patient Time with patient: 15 - 25 minutes Subjective Date/time seen: 12/03/24 12:22 Interval history: Interval history: Jennie Cedeno is a 64 year old female with a significant past medical history of major depressive disorder, hypertension, nicotine dependence, marijuana abuse, osteoarthritis who presented for an elective left total hip arthroplasty performed by Dr. Chayo. We were consulted for medical management while inpatient. Subjective: Patient denies any new complaints today. She states her pain is well controlled. She is currently on 5L NC. Labs and imaging reviewed. Review of Systems Review of Systems: All systems reviewed & are unremarkable except as noted in HPI and below Exam Narrative: General: In no acute distress, well nourished Cardiac: Normal S1 and S2. No murmur, gallops or friction rubs, peripheral pulses intact. Respiratory: Mild crackles in Left lung base, no adventitious lung sounds, currently on 5L NC Gastrointestinal: soft, non-distended, non-tender, normoactive bowel sounds. : voiding without difficulty. Skin: left hip incision with OR dressing in place Neuro: Alert and oriented x4 Objective Data Vital Signs Vital Signs: Vital Signs - 24 hr 12/02/24 16:09 12/02/24 20:06 12/02/24 20:10 Temperature 96.3 F L Pulse Rate 82 73 76 Respiratory Rate 18 18 18 Blood Pressure 105/68 Pulse Oximetry 92 Oxygen Delivery Oxygen Flow Rate 12/02/24 20:14 12/02/24 20:32 12/02/24 23:43 Temperature 97.2 F L 97.8 F Pulse Rate 75 79 Respiratory Rate 18 16 Blood Pressure 108/67 113/73 Pulse Oximetry 94 95 95 Oxygen Delivery Nasal Cannula Oxygen Flow Rate 4 12/03/24 02:03 12/03/24 02:09 12/03/24 03:22 Temperature 97.0 F L Pulse Rate 78 83 82 Respiratory Rate 18 18 16 Blood Pressure 137/75 Pulse Oximetry 93 Oxygen Delivery Oxygen Flow Rate 12/03/24 07:25 12/03/24 07:25 12/03/24 07:35 Temperature Pulse Rate 86 88 Respiratory Rate 20 20 Blood Pressure Pulse Oximetry 92 Oxygen Delivery Nasal Cannula Oxygen Flow Rate 5 12/03/24 08:35 12/03/24 08:40 12/03/24 10:50 Temperature Pulse Rate Respiratory Rate Blood Pressure Pulse Oximetry 82 L 92 Oxygen Delivery Nasal Cannula Nasal Cannula Nasal Cannula Oxygen Flow Rate 2 5 5 Intake/Output Intake/Output: Intake & Output 11/30/24 12/01/24 12/02/24 12/03/24 23:59 23:59 23:59 23:59 Intake Total 800 960 236 Output Total 30 900 0 Balance 770 60 236 Meds/Results Medications: Active Medications Generic Name Dose Route Start Last Admin Trade Name Freq PRN Reason Stop Dose Admin Acetaminophen 650 mg 12/01/24 14:00 12/03/24 10:44 Acetaminophen 325 Mg Tablet PO 650 mg Q4H JENNIFER Administration Albuterol/Ipratropium 3 ml 12/02/24 14:00 12/03/24 07:25 Ipratropium 0.5 Mg/Albuterol Sulfate 2.5 Mg Ampul.Neb 3 Ml INHALATION 3 ml Q6HRT JENNIFER Administration Amlodipine Besylate 5 mg 12/02/24 09:00 12/03/24 08:36 Amlodipine Besylate 5 Mg Tablet PO 5 mg DAILY JENNIFER Administration Apixaban 2.5 mg 12/02/24 09:00 12/03/24 08:36 Apixaban 2.5 Mg Tablet PO 2.5 mg Q12HR JENNIFER Administration Celecoxib 200 mg 12/02/24 09:00 12/03/24 08:36 Celecoxib 200 Mg Capsule PO 200 mg DAILY JENNIFER Administration Cephalexin HCl 500 mg 12/02/24 12:00 12/03/24 11:33 Cephalexin 500 Mg Capsule PO 500 mg Q6HR JENNIFER Administration Diphenhydramine HCl 25 mg 12/01/24 14:28 Diphenhydramine Hcl Inj 50 Mg/Ml Vial IV PUSH Q6H PRN Itching Famotidine 20 mg 12/01/24 21:00 12/03/24 08:36 Famotidine 20 Mg Tablet PO 20 mg Q12HR JENNIFER Administration Fluoxetine HCl 20 mg 12/02/24 09:00 12/03/24 08:36 Fluoxetine Hcl 20 Mg Capsule PO 20 mg DAILY JENNIFER Administration Levofloxacin 750 mg 12/02/24 14:00 12/02/24 14:31 Levofloxacin 750 Mg Tablet PO 750 mg Q24H JENNIFER Administration Morphine Sulfate 2 mg 12/01/24 14:28 Morphine Sulfate (*Crx) 2 Mg/Ml Inj IV PUSH Q2H PRN Breakthrough Pain Rated 4-6 or NPO Naloxone HCl 0.1 mg 12/01/24 14:28 Naloxone Hcl 0.4 Mg/Ml Vial IV PUSH Q2M PRN Opiate Reversal Ondansetron HCl 4 mg 12/01/24 14:28 Ondansetron Inj 4 Mg/2 Ml Vial IV PUSH Q4H PRN Nausea And Vomiting Oxycodone HCl 5 mg 12/01/24 14:28 12/02/24 09:38 Oxycodone Hcl (*Crx) 5 Mg Tab Ir PO 5 mg Q4H PRN Administration Pain Rated 7-10 Oxycodone HCl 2.5 mg 12/02/24 19:00 12/03/24 10:44 Oxycodone Hcl (*Crx) 2.5 Mg Tab Ir PO 2.5 mg Q4H JENNIFER Administration Polyethylene Glycol 17 gm 12/02/24 09:00 12/03/24 08:47 Polyethylene Glycol 3350 17 Gm Powd.Pack PO Not Given QAM JENNIFER Potassium Chloride 40 meq 12/03/24 15:00 Potassium Chloride 20 Meq Er Tablet PO 12/03/24 15:01 ONCE ONE Senna/Docusate Sodium 2 tab 12/01/24 17:00 12/03/24 08:47 Senna/Docusate Sodium Tablet PO Not Given BID JENNIFER Radiology Results: ITS Impressions Hip/Pelvis X-Ray 12/01/24 12:57 IMPRESSION: No acute osseous abnormality pelvis and left hip area. Left hip arthroplasty. Severe right hip osteoarthritic changes. Intraoperative X-Ray 12/01/24 13:00 IMPRESSION: 1. Fluoroscopy utilized during placement of a noncemented left total hip arthroplasty with expected appearance. Chest X-Ray 12/03/24 10:59 IMPRESSION: 1. Persistent airspace opacities in the bilateral lower lung zones with slight progression on the left which could represent atelectasis and/or pneumonia. Labs Labs: Laboratory Results - last 24 hr 12/03/24 07:39 WBC 9.1 RBC 3.59 L Hgb 10.8 L Hct 34.0 L MCV 94.7 MCH 30.1 MCHC 31.8 L RDW 14.3 Plt Count 259 MPV 10.1 Immature Gran % (Auto) 0.1 Neut % (Auto) 65.1 Lymph % (Auto) 24.6 Pepin % (Auto) 6.2 Eos % (Auto) 3.4 Baso % (Auto) 0.6 Lymph # (Auto) 2.23 Pepin # (Auto) 0.6 Eos # (Auto) 0.3 Baso # (Auto) 0.1 Abs Immat Gran (auto) 0.01 Absolute Neuts (auto) 5.9 Absolute Nucleated RBC 0.000 Nucleated RBC % 0.0 Sodium 139 Potassium 2.9 L Chloride 104 Carbon Dioxide 34 H Anion Gap 1 L BUN 14 D Creatinine 0.43 L Estim Creat Clear Calc 129 Estimated GFR > 60 Glucose 99 Calcium 7.8 L Total Bilirubin 0.3 AST 35 ALT 14 Alkaline Phosphatase 68 Total Protein 6.0 L Albumin 2.8 L Quality VTE Prophylaxis VTE prophylaxis: pharmacologic ordered
[2024-12-03 13:13] LABS: Influenza A QL RT-PCR Negative (Negative); Influenza B QL RT-PCR Negative (Negative); RSV RNA, RT-PCR Negative (Negative); SARS-CoV-2 RNA PCR Negative (Negative)
[2024-12-03] MEDS: levoFLOXacin 750 MG TABLET PO (14:47)
[2024-12-03 16:33] LABS: Anti Cyclic Citrullinated Pept <16 UNITS
[2024-12-03] MEDS: guaiFENesin 12 HR 600 MG TABCR 1200 MG PO (20:11)
[2024-12-04] VITALS (15 sets, daily range): BP systolic 108–123; BP diastolic 64–77; PULSE 71–79; RESP 14–20; TEMP 36.4–36.5; O2SAT 84–100
[2024-12-04] MEDS: oxyCODONE HCL (*CRX) 2.5 MG TAB IR PO ×4 (03:18→15:35)
[2024-12-04] MEDS: ACETAMINOPHEN 325 MG TABLET 650 MG PO ×6 (03:18→21:04)
[2024-12-04] MEDS: CEPHALEXIN 500 MG CAPSULE PO ×3 (06:01→17:14)
[2024-12-04] MEDS: IPRATROPIUM 0.5 MG/ALBUTEROL SULFATE 2.5 MG AMPUL.NEB 3 ML INHALATION ×3 (07:41→21:19)
[2024-12-04] MEDS: APIXABAN 2.5 MG TABLET PO ×2 (08:33→20:52)
[2024-12-04] MEDS: amLODIPine BESYLATE 5 MG TABLET PO (08:33)
[2024-12-04] MEDS: FAMOTIDINE 20 MG TABLET PO ×2 (08:33→20:52)
[2024-12-04] MEDS: FLUoxetine HCL 20 MG CAPSULE PO (08:34)
[2024-12-04] MEDS: guaiFENesin 12 HR 600 MG TABCR 1200 MG PO ×2 (08:34→20:52)
[2024-12-04] MEDS: CELECOXIB 200 MG CAPSULE PO (08:34)
[2024-12-04] MEDS: polyethylene glycoL 3350 17 GM POWD.PACK PO (08:34)
--- NOTE | 2024-12-04 12:02 | PM.PNORT ---
Subjective Subjective Date/Time Seen: 12/04/24 12:02 Interval history: Postop day 3 patient is alert. Pain is well controlled. She is still requiring oxygen to maintain her sats. Patient has not had a fever since surgery. She has not had a spike in her white count. She is a long-term smoker and chest x-ray showed either pneumonia or atelectasis. We will consult pulmonology for recommendations. Patient may need to be on home oxygen for the time being. She also may need further workup with pulmonology as well. She has been a long-term smoker who recently quit. Dressing is dry and intact. Patient is getting around well with physical therapy. Once pulmonology has made the recommendations and if they are comfortable with patient being discharged will try to get her discharged this afternoon Objective Data Vital Signs Vital Signs: Vital Signs - 24 hr 12/03/24 14:03 12/03/24 14:29 12/03/24 14:38 Temperature 98.0 F Pulse Rate 75 82 79 Respiratory Rate 16 20 20 Blood Pressure 105/65 Pulse Oximetry 92 Oxygen Delivery Oxygen Flow Rate 12/03/24 16:30 12/03/24 17:00 12/03/24 17:30 Temperature Pulse Rate Respiratory Rate Blood Pressure Pulse Oximetry 94 95 96 Oxygen Delivery Nasal Cannula Nasal Cannula Nasal Cannula Oxygen Flow Rate 4 3 2 12/03/24 18:45 12/03/24 21:00 12/03/24 21:08 Temperature Pulse Rate 76 75 Respiratory Rate 18 18 Blood Pressure Pulse Oximetry 92 Oxygen Delivery Nasal Cannula Oxygen Flow Rate 1 12/03/24 21:49 12/04/24 05:00 12/04/24 05:03 Temperature 97.4 F L Pulse Rate 80 Respiratory Rate 12 Blood Pressure 108/58 L Pulse Oximetry 91 84 L 92 Oxygen Delivery Nasal Cannula Nasal Cannula Oxygen Flow Rate 1 3 12/04/24 06:00 12/04/24 07:39 12/04/24 07:39 Temperature 97.5 F L Pulse Rate 79 76 Respiratory Rate 14 18 Blood Pressure 123/77 Pulse Oximetry 92 91 Oxygen Delivery Nasal Cannula Oxygen Flow Rate 3 12/04/24 07:53 12/04/24 08:00 12/04/24 08:15 Temperature Pulse Rate 48 L Respiratory Rate 20 Blood Pressure Pulse Oximetry 95 91 Oxygen Delivery Nasal Cannula Nasal Cannula Oxygen Flow Rate 3 1 12/04/24 08:25 12/04/24 08:34 12/04/24 08:35 Temperature Pulse Rate Respiratory Rate Blood Pressure Pulse Oximetry 85 L 94 Oxygen Delivery Room Air Nasal Cannula Nasal Cannula Oxygen Flow Rate 3 3 Intake/Output Intake/Output: Intake & Output 12/01/24 12/02/24 12/03/24 12/04/24 23:59 23:59 23:59 23:59 Intake Total 800 960 716 560 Output Total 30 900 0 Balance 770 60 716 560 Meds/Results Medications: Active Medications Generic Name Dose Route Start Last Admin Trade Name Freq PRN Reason Stop Dose Admin Acetaminophen 650 mg 12/01/24 14:00 12/04/24 11:13 Acetaminophen 325 Mg Tablet PO 650 mg Q4H JENNIFER Administration Albuterol/Ipratropium 3 ml 12/02/24 14:00 12/04/24 07:41 Ipratropium 0.5 Mg/Albuterol Sulfate 2.5 Mg Ampul.Neb 3 Ml INHALATION 3 ml Q6HRT JENNIFER Administration Amlodipine Besylate 5 mg 12/02/24 09:00 12/04/24 08:33 Amlodipine Besylate 5 Mg Tablet PO 5 mg DAILY JENNIFER Administration Apixaban 2.5 mg 12/02/24 09:00 12/04/24 08:33 Apixaban 2.5 Mg Tablet PO 2.5 mg Q12HR JENNIFER Administration Celecoxib 200 mg 12/02/24 09:00 12/04/24 08:34 Celecoxib 200 Mg Capsule PO 200 mg DAILY JENNIFER Administration Cephalexin HCl 500 mg 12/02/24 12:00 12/04/24 11:14 Cephalexin 500 Mg Capsule PO 500 mg Q6HR JENNIFER Administration Diphenhydramine HCl 25 mg 12/01/24 14:28 Diphenhydramine Hcl Inj 50 Mg/Ml Vial IV PUSH Q6H PRN Itching Famotidine 20 mg 12/01/24 21:00 12/04/24 08:33 Famotidine 20 Mg Tablet PO 20 mg Q12HR JENNIFER Administration Fluoxetine HCl 20 mg 12/02/24 09:00 12/04/24 08:34 Fluoxetine Hcl 20 Mg Capsule PO 20 mg DAILY JENNIFER Administration Guaifenesin 1,200 mg 12/03/24 21:00 12/04/24 08:34 Guaifenesin 12 Hr 600 Mg Tabcr PO 1,200 mg Q12HR JENNIFER Administration Levofloxacin 750 mg 12/02/24 14:00 12/03/24 14:47 Levofloxacin 750 Mg Tablet PO 12/08/24 14:01 750 mg Q24H JENNIFER Administration Morphine Sulfate 2 mg 12/01/24 14:28 Morphine Sulfate (*Crx) 2 Mg/Ml Inj IV PUSH Q2H PRN Breakthrough Pain Rated 4-6 or NPO Naloxone HCl 0.1 mg 12/01/24 14:28 Naloxone Hcl 0.4 Mg/Ml Vial IV PUSH Q2M PRN Opiate Reversal Ondansetron HCl 4 mg 12/01/24 14:28 Ondansetron Inj 4 Mg/2 Ml Vial IV PUSH Q4H PRN Nausea And Vomiting Oxycodone HCl 5 mg 12/01/24 14:28 12/02/24 09:38 Oxycodone Hcl (*Crx) 5 Mg Tab Ir PO 5 mg Q4H PRN Administration Pain Rated 7-10 Oxycodone HCl 2.5 mg 12/02/24 19:00 12/04/24 11:14 Oxycodone Hcl (*Crx) 2.5 Mg Tab Ir PO 2.5 mg Q4H JENNIFER Administration Polyethylene Glycol 17 gm 12/02/24 09:00 12/04/24 08:34 Polyethylene Glycol 3350 17 Gm Powd.Pack PO 17 gm QAM JENNIFER Administration Senna/Docusate Sodium 2 tab 12/01/24 17:00 12/04/24 08:34 Senna/Docusate Sodium Tablet PO Not Given BID [facility] Radiology Results: ITS Impressions Hip/Pelvis X-Ray 12/01/24 12:57 IMPRESSION: No acute osseous abnormality pelvis and left hip area. Left hip arthroplasty. Severe right hip osteoarthritic changes. Intraoperative X-Ray 12/01/24 13:00 IMPRESSION: 1. Fluoroscopy utilized during placement of a noncemented left total hip arthroplasty with expected appearance. Chest X-Ray 12/03/24 10:59 IMPRESSION: 1. Persistent airspace opacities in the bilateral lower lung zones with slight progression on the left which could represent atelectasis and/or pneumonia. Labs Labs: Laboratory Results - last 24 hr 12/02/24 12/03/24 06:04 12:27 Anti-Cycl Citrul Peptide <16 Influenza A (RT-PCR) Negative Influenza B (RT-PCR) Negative RSV (RT-PCR) Negative SARS-CoV-2 RNA (RT-PCR) Negative
--- NOTE | 2024-12-04 13:30 | P.CONPL_ITS ---
Assessment and Plan Assessment and plan (1) Cigarette nicotine dependence: Qualifiers: Substance use status: uncomplicated Qualified Code(s): F17.210 - Nicotine dependence, cigarettes, uncomplicated Code(s): F17.210 - Nicotine dependence, cigarettes, uncomplicated Status: Acute (2) History of total hip arthroplasty: Code(s): Z96.649 - Presence of unspecified artificial hip joint Status: Acute (3) Obesity: Code(s): E66.9 - Obesity, unspecified Status: Acute (4) Hypoxemia: Code(s): R09.02 - Hypoxemia Status: Acute Assessment and Plan: This 64-year-old female with obesity, who has been a smoker for many years, underwent a hip replacement 3 days ago. Although her recovery has been uneventful, she continues to require oxygen at 3 liters per minute. Her physical examination is essentially unremarkable for any underlying lung disease. There is no history suggestive of a lower respiratory tract infection, although she remains on antibiotics. A chest X-ray raises the question of left lower lobe atelectasis. Basal atelectasis is likely the most probable cause of her persistent hypoxemia, especially considering her prolonged bedridden status and obesity. A pulmonary embolism is doubtful since the patient is appropriately on anticoagulation therapy. The plan is to intensify incentive spirometry to every hour and continue with short-acting bronchodilators every 4-6 hours today. She should spend most of the day out of bed and, if possible, reduce the frequency of pain medication use. Administer Lasix 20 mg IV once for fluid overload. Discontinue antibiotic if that was prescribed for lower respiratory tract infection. A repeat home oxygen evaluation should be conducted in the morning, with the anticipation of improvement by discharge. It is preferable to delay discharge until tomorrow morning, rather than arranging for home oxygen today. She will probably need further workup for underlying COPD or sleep-disordered breathing, although she currently exhibits no symptoms highly suggestive of sleep apnea. I will continue to follow the patient alongside you. History of Present Illness History of Present Illness Consult date: 12/04/24 Chief complaint: O A Lt Hip Narrative: This consultation addresses hypoxemia following hip replacement surgery. The patient has a history of obesity and smoking but no prior lung disease. She underwent hip replacement surgery 3 days ago. Although she resumed ambulation shortly after surgery, she has been spending at least 6 hours in bed during the day, particularly after taking a strong painkiller that causes drowsiness. She requires supplemental oxygen, although she is otherwise ready for discharge. She has been receiving DVT prophylaxis with a direct anticoagulant. Over the past few days, she has not experienced any new respiratory symptoms such as fever, cough, wheezing, orthopnea, or hemoptysis. A chest X-ray taken yesterday suggested probable atelectasis in the lower lobes, particularly on the left. The patient is performing incentive spirometry several times a day. She has never had a lung function assessment in the past and is not on any medications for possible COPD. Upon questioning, she denied having symptoms suggestive of sleep- disordered breathing. The initial chest X-ray showed no active disease, and her total bicarbonate level was not elevated upon admission for surgery. Review of Systems 2 Review of Systems: All systems reviewed & are unremarkable except as noted in HPI and below (HPI and below) FORMERLY [facility], [facility] Past Medical History Medical History Osteoarthritis Anxiety Primary osteoarthritis of left hip Cigarette nicotine dependence Major depressive disorder, recurrent severe without psychotic features Primary hypertension Surgical History Surgical History History of bladder suspension procedure History of intestinal surgery 2013 for bowel obstruction History of hysterectomy 1996 Family History Family History Sibling Cerebrovascular accident Social History Social History Smoking packs per day: 20 Smoking cigarettes per day: 400.0 Years smoked: 52 Smoking pack-years: 1040.00 Smoking status: Former smoker Tobacco type: cigarettes Second hand tobacco smoke exposure: No Smoking end date: 10/24/24 Additional smoking assessment comments: NON-NICTONE VAPE X6/DAY Alcohol intake: never Alcohol use details: SOCIAL DRINKER IN PAST Substance use: never Substance use type: marijuana Other substance usage details: SMOKES MARIJUANA NIGHTLY Do You Feel Safe in your Home?: Yes Lack of Transportation: No Lack of Food: Never True Current Housing: I Have Housing Concerned About Future Housing: No Difficulty Paying Gas/Electric Bills: No Difficulty Paying for Meds: No Currently Unemployed: No Education: Don't Know Difficulty w/ Childcare or Family Care: No Living arrangements: with family Additional living arrangements comments: [place] Occupation/Education: retired Gender identity (if verbalized by the patient): Female Sexual Orientation (if Verbalized by the Patient): Straight or Heterosexual Spiritual care concerns: No Meds Home Medications and Allergies Home Medications ?Medication ?Instructions ?Recorded ?Confirmed ?Type amlodipine 5 mg tablet 5 mg PO DAILY #90 tabs 10/31/24 12/01/24 Rx fluoxetine 20 mg capsule 20 mg PO DAILY #90 caps 10/31/24 12/01/24 Rx lisinopril 10 mg tablet 10 mg PO DAILY #90 tabs 10/31/24 12/01/24 Rx acetaminophen 325 mg tablet 650 mg (2 x 325 mg) PO Q4H #90 tabs 12/02/24 Rx apixaban 2.5 mg tablet (Eliquis) 2.5 mg PO Q12HR #70 tabs 12/02/24 Rx celecoxib 200 mg capsule (Celebrex) 200 mg PO DAILY #10 caps 12/02/24 Rx cephalexin 500 mg capsule 500 mg PO Q6HR #40 caps 12/02/24 Rx oxycodone 5 mg tablet 5 mg PO Q4H PRN pain #40 tabs 12/02/24 Rx polyethylene glycol 3350 17 gram 17 g PO QAM #30 ea 12/02/24 Rx oral powder packet (Miralax) sennosides 8.6 mg-docusate sodium 2 tab-cap (2 x 8.6-50 mg) PO BID 12/02/24 Rx 50 mg tablet (Senokot-S) #60 tabs Allergies Allergy/AdvReac Type Severity Reaction Status Date / Time Penicillins Allergy Unknown Hives, Verified 12/01/24 07:22 FACE SWELLING Vital Signs Vital Signs - 24 hr 12/03/24 14:03 12/03/24 14:29 12/03/24 14:38 Temperature 36.7 C Pulse Rate 75 82 79 Respiratory Rate 16 20 20 Blood Pressure 105/65 Pulse Oximetry 92 Oxygen Delivery Oxygen Flow Rate 12/03/24 16:30 12/03/24 17:00 12/03/24 17:30 Temperature Pulse Rate Respiratory Rate Blood Pressure Pulse Oximetry 94 95 96 Oxygen Delivery Nasal Cannula Nasal Cannula Nasal Cannula Oxygen Flow Rate 4 3 2 12/03/24 18:45 12/03/24 21:00 12/03/24 21:08 Temperature Pulse Rate 76 75 Respiratory Rate 18 18 Blood Pressure Pulse Oximetry 92 Oxygen Delivery Nasal Cannula Oxygen Flow Rate 1 12/03/24 21:49 12/04/24 05:00 12/04/24 05:03 Temperature 36.3 C L Pulse Rate 80 Respiratory Rate 12 Blood Pressure 108/58 L Pulse Oximetry 91 84 L 92 Oxygen Delivery Nasal Cannula Nasal Cannula Oxygen Flow Rate 1 3 12/04/24 06:00 12/04/24 07:39 12/04/24 07:39 Temperature 36.4 C L Pulse Rate 79 76 Respiratory Rate 14 18 Blood Pressure 123/77 Pulse Oximetry 92 91 Oxygen Delivery Nasal Cannula Oxygen Flow Rate 3 12/04/24 07:53 12/04/24 08:00 12/04/24 08:15 Temperature Pulse Rate 48 L Respiratory Rate 20 Blood Pressure Pulse Oximetry 95 91 Oxygen Delivery Nasal Cannula Nasal Cannula Oxygen Flow Rate 3 1 12/04/24 08:25 12/04/24 08:34 12/04/24 08:35 Temperature Pulse Rate Respiratory Rate Blood Pressure Pulse Oximetry 85 L 94 Oxygen Delivery Room Air Nasal Cannula Nasal Cannula Oxygen Flow Rate 3 3 Exam 2 Narrative: GENERAL APPEARANCE: Well developed, well nourished, alert and cooperative, and appears to be in no acute distress while on supplemental oxygen SKIN: Inspection of the skin reveals no rashes, ulcerations or petechiae. HEENT: Sclerae anicteric and conjunctivae pink and moist. Extraocular movements were intact and pupils were equal, round, and reactive to light. The oral mucosa, hard and soft palate, tongue and posterior pharynx were normal. NECK: Supple. There was no thyroid enlargement, and no tenderness, or masses were felt. CHEST: Normal AP diameter and normal contour without any kyphoscoliosis. LUNGS: Clear lungs bilaterally no crackles no wheezing CARDIAC: There was a regular rate and rhythm without any murmurs, gallops, rubs. ABDOMEN: Soft and nontender with normal bowel sounds. There was no organomegaly. LYMPH NODES: No lymphadenopathy was appreciated in the neck. EXTREMITIES: No cyanosis, clubbing or edema. NEUROLOGIC: Alert and oriented x 3. Normal affect. Results Laboratory Findings 12/03/24 07:39 12/03/24 07:39 ABG, PT/INR, D-dimer: ABG ABG pH 7.421 (7.350-7.450) 12/02/24 10:59 ABG pCO2 44.9 mmHg (35.0-45.0) 12/02/24 10:59 ABG pO2 65.4 mmHg (80.0-100.0) L 12/02/24 10:59 ABG O2 Saturation 93.1 % (95.0-100.0) L 12/02/24 10:59 Abnormal lab findings: Abnormal Labs 12/02/24 12/02/24 12/03/24 06:04 10:59 07:39 RBC 3.82 L 3.59 L Hgb 11.6 L D 10.8 L Hct 34.0 L MCHC 31.3 L 31.8 L MPV 10.6 H ABG pO2 65.4 L ABG HCO3 28.5 H ABG O2 Saturation 93.1 L ABG O2 Content 15.1 L Total Hemoglobin 11.7 L Potassium 2.9 L Carbon Dioxide 34 H Anion Gap 1 L BUN 20 H D Creatinine 0.59 L 0.43 L Glucose 129 H Calcium 7.9 L 7.8 L Total Protein 6.0 L Albumin 2.8 L
[2024-12-04] MEDS: levoFLOXacin 750 MG TABLET PO (13:49)
[2024-12-04] MEDS: FUROSEMIDE INJ 40 MG/4 ML VIAL 20 MG IV PUSH (13:49)
--- NOTE | 2024-12-04 16:09 | PM.PNORT ---
Progress Note: A&P Assessment and Plan (1) History of total hip arthroplasty: Qualifiers: Laterality: left Qualified Code(s): Z96.642 - Presence of left artificial hip joint Code(s): Z96.649 - Presence of unspecified artificial hip joint Status: Acute Assessment and Plan: I have reviewed the assistant pressman note. I would agree that the preponderance of evidence would argue for the basilar infiltrates representing atelectasis is the patient has had no temperature of 37? or higher during her hospitalization of multiple temperatures taken, she has had a normal white count during the hospitalization she does not have a cough. Also of note, we observed that her oxygen saturation was only 92% when she wheeled back to the operating room on room air which would be at rest on a gurney. I have discontinued the Levaquin. I have reduced her oxycodone 2.5 mg q.4 hours scheduled to p.r.n. and I did encourage her to use the incentive spirometer every hour while awake. She has good pain control relative to her left hip surgery. Lasix has been ordered for her and hopefully her oxygen requirements will be less in the morning and we will defer discharge until recommended by assistant pressman. Her rheumatoid factor was minimally elevated at 15.3 normal is less than 12. Her anti CCP was less than 16 so this is completely negative which would argue against seropositive knee arthritis. We or these tests because she did a fair amount of synovitis and she has arthritis in both knees and both hips. It is possible that the extensive synovitis might be related to the unusually advanced nature of her hip arthritis with quite a bit of bone loss. Of course the negative test do not rule out seronegative rheumatoid arthritis we will keep an eye on her for other symptoms such is hand or foot pain her other joints a tenosynovitis that would prompt referral to a lockstitch shoulder joiner. Subjective Subjective Date/Time Seen: 12/04/24 16:09 Objective Data Vital Signs Vital Signs: Vital Signs - 24 hr 12/03/24 16:30 12/03/24 17:00 12/03/24 17:30 Temperature Pulse Rate Respiratory Rate Blood Pressure Pulse Oximetry 94 95 96 Oxygen Delivery Nasal Cannula Nasal Cannula Nasal Cannula Oxygen Flow Rate 4 3 2 12/03/24 18:45 12/03/24 21:00 12/03/24 21:08 Temperature Pulse Rate 76 75 Respiratory Rate 18 18 Blood Pressure Pulse Oximetry 92 Oxygen Delivery Nasal Cannula Oxygen Flow Rate 1 12/03/24 21:49 12/04/24 05:00 12/04/24 05:03 Temperature 36.3 C L Pulse Rate 80 Respiratory Rate 12 Blood Pressure 108/58 L Pulse Oximetry 91 84 L 92 Oxygen Delivery Nasal Cannula Nasal Cannula Oxygen Flow Rate 1 3 12/04/24 06:00 12/04/24 07:39 12/04/24 07:39 Temperature 36.4 C L Pulse Rate 79 76 Respiratory Rate 14 18 Blood Pressure 123/77 Pulse Oximetry 92 91 Oxygen Delivery Nasal Cannula Oxygen Flow Rate 3 12/04/24 07:53 12/04/24 08:00 12/04/24 08:15 Temperature Pulse Rate 78 Respiratory Rate 20 Blood Pressure Pulse Oximetry 95 91 Oxygen Delivery Nasal Cannula Nasal Cannula Oxygen Flow Rate 3 1 12/04/24 08:25 12/04/24 08:34 12/04/24 08:35 Temperature Pulse Rate Respiratory Rate Blood Pressure Pulse Oximetry 85 L 94 Oxygen Delivery Room Air Nasal Cannula Nasal Cannula Oxygen Flow Rate 3 3 12/04/24 14:31 12/04/24 14:31 12/04/24 14:41 Temperature Pulse Rate 77 77 78 Respiratory Rate 20 20 20 Blood Pressure Pulse Oximetry 93 Oxygen Delivery Nasal Cannula Oxygen Flow Rate 3 Intake/Output Intake/Output: Intake & Output 12/01/24 12/02/24 12/03/24 12/04/24 23:59 23:59 23:59 23:59 Intake Total 800 960 716 890 Output Total 30 900 0 Balance 770 60 716 890 Meds/Results Medications: Active Medications Generic Name Dose Route Start Last Admin Trade Name Freq PRN Reason Stop Dose Admin Acetaminophen 650 mg 12/01/24 14:00 12/04/24 13:49 Acetaminophen 325 Mg Tablet PO 650 mg Q4H JENNIFER Administration Albuterol/Ipratropium 3 ml 12/02/24 14:00 12/04/24 14:30 Ipratropium 0.5 Mg/Albuterol Sulfate 2.5 Mg Ampul.Neb 3 Ml INHALATION 3 ml Q6HRT JENNIFER Administration Amlodipine Besylate 5 mg 12/02/24 09:00 12/04/24 08:33 Amlodipine Besylate 5 Mg Tablet PO 5 mg DAILY JENNIFER Administration Apixaban 2.5 mg 12/02/24 09:00 12/04/24 08:33 Apixaban 2.5 Mg Tablet PO 2.5 mg Q12HR JENNIFER Administration Celecoxib 200 mg 12/02/24 09:00 12/04/24 08:34 Celecoxib 200 Mg Capsule PO 200 mg DAILY JENNIFER Administration Cephalexin HCl 500 mg 12/02/24 12:00 12/04/24 11:14 Cephalexin 500 Mg Capsule PO 500 mg Q6HR JENNIFER Administration Diphenhydramine HCl 25 mg 12/01/24 14:28 Diphenhydramine Hcl Inj 50 Mg/Ml Vial IV PUSH Q6H PRN Itching Famotidine 20 mg 12/01/24 21:00 12/04/24 08:33 Famotidine 20 Mg Tablet PO 20 mg Q12HR JENNIFER Administration Fluoxetine HCl 20 mg 12/02/24 09:00 12/04/24 08:34 Fluoxetine Hcl 20 Mg Capsule PO 20 mg DAILY JENNIFER Administration Guaifenesin 1,200 mg 12/03/24 21:00 12/04/24 08:34 Guaifenesin 12 Hr 600 Mg Tabcr PO 1,200 mg Q12HR JENNIFER Administration Naloxone HCl 0.1 mg 12/01/24 14:28 Naloxone Hcl 0.4 Mg/Ml Vial IV PUSH Q2M PRN Opiate Reversal Ondansetron HCl 4 mg 12/01/24 14:28 Ondansetron Inj 4 Mg/2 Ml Vial IV PUSH Q4H PRN Nausea And Vomiting Oxycodone HCl 2.5 mg 12/04/24 16:06 Oxycodone Hcl (*Crx) 2.5 Mg Tab Ir PO Q4H PRN Pain Rated 4-10 Polyethylene Glycol 17 gm 12/02/24 09:00 12/04/24 08:34 Polyethylene Glycol 3350 17 Gm Powd.Pack PO 17 gm QAM [facility] Administration Senna/Docusate Sodium 2 tab 12/01/24 17:00 12/04/24 08:34 Senna/Docusate Sodium Tablet PO Not Given BID [facility] Radiology Results: ITS Impressions Hip/Pelvis X-Ray 12/01/24 12:57 IMPRESSION: No acute osseous abnormality pelvis and left hip area. Left hip arthroplasty. Severe right hip osteoarthritic changes. Intraoperative X-Ray 12/01/24 13:00 IMPRESSION: 1. Fluoroscopy utilized during placement of a noncemented left total hip arthroplasty with expected appearance. Chest X-Ray 12/03/24 10:59 IMPRESSION: 1. Persistent airspace opacities in the bilateral lower lung zones with slight progression on the left which could represent atelectasis and/or pneumonia. Labs Labs: Laboratory Results - last 24 hr 12/02/24 06:04 Anti-Cycl Citrul Peptide <16
--- NOTE | 2024-12-04 18:27 | P.PNIM_ITS ---
Progress Note: A&P Assessment and Plan (1) Primary osteoarthritis of left hip: Code(s): M16.12 - Unilateral primary osteoarthritis, left hip Status: Acute Assessment and Plan: * patient is postop day 1 from a left total hip arthroplasty with Dr. Domingo * PT and OT ordered * continue hip precautions * continue incentive spirometry while awake * continue pain control * continue Eliquis for DVT prophylaxis * full weight-bearing status 12/03 * No change to current treatment plan (2) Pneumonia: Code(s): J18.9 - Pneumonia, unspecified organism Status: Acute Assessment and Plan: * CXR from 12/03/24 still showing persistent airspace opacities in the bilateral lower lung zones with slight progression on the left * Currently on 3L NC * Continue Duonebs * Continue to wean O2 for a saturation greater than 92% * Will likely need home O2 eval before dischaging * Continue Levaquin * Continue Mucinex (3) Major depressive disorder, recurrent severe without psychotic features: Code(s): F33.2 - Major depressive disorder, recurrent severe without psychotic features Status: Acute Assessment and Plan: * continue Prozac (4) Anxiety: Code(s): F41.9 - Anxiety disorder, unspecified Status: Acute Assessment and Plan: * continue Prozac (5) Primary hypertension: Code(s): I10 - Essential (primary) hypertension Status: Acute Assessment and Plan: * blood pressure ranging 108/70 to 118/72 * continue amlodipine (6) Cigarette nicotine dependence: Qualifiers: Substance use status: uncomplicated Qualified Code(s): F17.210 - Nicotine dependence, cigarettes, uncomplicated Code(s): F17.210 - Nicotine dependence, cigarettes, uncomplicated Status: Acute Assessment and Plan: * 1 pack per day for 52 years, quit this past October. Time Spent With Patient Time with patient: 15 - 25 minutes Subjective Date/time seen: 12/04/24 18:27 Interval history: Interval history: Jennie Cedeno is a 64 year old female with a significant past medical history of major depressive disorder, hypertension, nicotine dependence, marijuana abuse, osteoarthritis who presented for an elective left total hip arthroplasty performed by Dr. Domingo. We were consulted for medical management while inpatient. Subjective: Patient denies any new complaints today. She is currently on 3L NC. Labs reviewed. Review of Systems Review of Systems: All systems reviewed & are unremarkable except as noted in HPI and below Exam Narrative: General: In no acute distress, well nourished Cardiac: Normal S1 and S2. No murmur, gallops or friction rubs, peripheral pulses intact. Respiratory: Mild crackles in Left lung base, no adventitious lung sounds, currently on 3L NC Gastrointestinal: soft, non-distended, non-tender, normoactive bowel sounds. : voiding without difficulty. Skin: left hip incision with OR dressing in place Neuro: Alert and oriented x4 Objective Data Vital Signs Vital Signs: Vital Signs - 24 hr 12/03/24 18:45 12/03/24 21:00 12/03/24 21:08 Temperature Pulse Rate 76 75 Respiratory Rate 18 18 Blood Pressure Pulse Oximetry 92 Oxygen Delivery Nasal Cannula Oxygen Flow Rate 1 12/03/24 21:49 12/04/24 05:00 12/04/24 05:03 Temperature 97.4 F L Pulse Rate 80 Respiratory Rate 12 Blood Pressure 108/58 L Pulse Oximetry 91 84 L 92 Oxygen Delivery Nasal Cannula Nasal Cannula Oxygen Flow Rate 1 3 12/04/24 06:00 12/04/24 07:39 12/04/24 07:39 Temperature 97.5 F L Pulse Rate 79 76 Respiratory Rate 14 18 Blood Pressure 123/77 Pulse Oximetry 92 91 Oxygen Delivery Nasal Cannula Oxygen Flow Rate 3 12/04/24 07:53 12/04/24 08:00 12/04/24 08:15 Temperature Pulse Rate 78 Respiratory Rate 20 Blood Pressure Pulse Oximetry 95 91 Oxygen Delivery Nasal Cannula Nasal Cannula Oxygen Flow Rate 3 1 12/04/24 08:25 12/04/24 08:34 12/04/24 08:35 Temperature Pulse Rate Respiratory Rate Blood Pressure Pulse Oximetry 85 L 94 Oxygen Delivery Room Air Nasal Cannula Nasal Cannula Oxygen Flow Rate 3 3 12/04/24 14:31 12/04/24 14:31 12/04/24 14:41 Temperature Pulse Rate 77 77 78 Respiratory Rate 20 20 20 Blood Pressure Pulse Oximetry 93 Oxygen Delivery Nasal Cannula Oxygen Flow Rate 3 12/04/24 16:04 Temperature 97.7 F Pulse Rate 78 Respiratory Rate 16 Blood Pressure 108/71 Pulse Oximetry 97 Oxygen Delivery Oxygen Flow Rate Intake/Output Intake/Output: Intake & Output 12/01/24 12/02/24 12/03/24 12/04/24 23:59 23:59 23:59 23:59 Intake Total 800 760 287 5353 Output Total 30 900 0 Balance 770 60 716 1130 Meds/Results Medications: Active Medications Generic Name Dose Route Start Last Admin Trade Name Freq PRN Reason Stop Dose Admin Acetaminophen 650 mg 12/01/24 14:00 12/04/24 17:13 Acetaminophen 325 Mg Tablet PO 650 mg Q4H JENNIFER Administration Albuterol/Ipratropium 3 ml 12/02/24 14:00 12/04/24 14:30 Ipratropium 0.5 Mg/Albuterol Sulfate 2.5 Mg Ampul.Neb 3 Ml INHALATION 3 ml Q6HRT JENNIFER Administration Amlodipine Besylate 5 mg 12/02/24 09:00 12/04/24 08:33 Amlodipine Besylate 5 Mg Tablet PO 5 mg DAILY JENNIFER Administration Apixaban 2.5 mg 12/02/24 09:00 12/04/24 08:33 Apixaban 2.5 Mg Tablet PO 2.5 mg Q12HR JENNIFER Administration Celecoxib 200 mg 12/02/24 09:00 12/04/24 08:34 Celecoxib 200 Mg Capsule PO 200 mg DAILY JENNIFER Administration Cephalexin HCl 500 mg 12/02/24 12:00 12/04/24 17:14 Cephalexin 500 Mg Capsule PO 500 mg Q6HR JENNIFER Administration Diphenhydramine HCl 25 mg 12/01/24 14:28 Diphenhydramine Hcl Inj 50 Mg/Ml Vial IV PUSH Q6H PRN Itching Famotidine 20 mg 12/01/24 21:00 12/04/24 08:33 Famotidine 20 Mg Tablet PO 20 mg Q12HR JENNIFER Administration Fluoxetine HCl 20 mg 12/02/24 09:00 12/04/24 08:34 Fluoxetine Hcl 20 Mg Capsule PO 20 mg DAILY JENNIFER Administration Guaifenesin 1,200 mg 12/03/24 21:00 12/04/24 08:34 Guaifenesin 12 Hr 600 Mg Tabcr PO 1,200 mg Q12HR JENNIFER Administration Naloxone HCl 0.1 mg 12/01/24 14:28 Naloxone Hcl 0.4 Mg/Ml Vial IV PUSH Q2M PRN Opiate Reversal Ondansetron HCl 4 mg 12/01/24 14:28 Ondansetron Inj 4 Mg/2 Ml Vial IV PUSH Q4H PRN Nausea And Vomiting Oxycodone HCl 2.5 mg 12/04/24 16:06 Oxycodone Hcl (*Crx) 2.5 Mg Tab Ir PO Q4H PRN Pain Rated 4-10 Polyethylene Glycol 17 gm 12/02/24 09:00 12/04/24 08:34 Polyethylene Glycol 3350 17 Gm Powd.Pack PO 17 gm QAM [facility] Administration Senna/Docusate Sodium 2 tab 12/01/24 17:00 12/04/24 17:14 Senna/Docusate Sodium Tablet PO Not Given BID [facility] Radiology Results: ITS Impressions Hip/Pelvis X-Ray 12/01/24 12:57 IMPRESSION: No acute osseous abnormality pelvis and left hip area. Left hip arthroplasty. Severe right hip osteoarthritic changes. Intraoperative X-Ray 12/01/24 13:00 IMPRESSION: 1. Fluoroscopy utilized during placement of a noncemented left total hip arthroplasty with expected appearance. Chest X-Ray 12/03/24 10:59 IMPRESSION: 1. Persistent airspace opacities in the bilateral lower lung zones with slight progression on the left which could represent atelectasis and/or pneumonia. Quality VTE Prophylaxis VTE prophylaxis: pharmacologic ordered
[2024-12-05] VITALS (8 sets, daily range): BP systolic 100–140; BP diastolic 55–84; PULSE 72–99; RESP 14–20; TEMP 36.4–36.6; O2SAT 91–100
[2024-12-05] MEDS: CEPHALEXIN 500 MG CAPSULE PO ×3 (00:23→11:11)
[2024-12-05] MEDS: oxyCODONE HCL (*CRX) 2.5 MG TAB IR PO ×3 (03:00→11:11)
[2024-12-05] MEDS: ACETAMINOPHEN 325 MG TABLET 650 MG PO ×3 (03:01→08:52)
[2024-12-05] MEDS: IPRATROPIUM 0.5 MG/ALBUTEROL SULFATE 2.5 MG AMPUL.NEB 3 ML INHALATION ×2 (08:01→13:33)
[2024-12-05] MEDS: polyethylene glycoL 3350 17 GM POWD.PACK PO (08:50)
[2024-12-05] MEDS: SENNA/DOCUSATE SODIUM TABLET 2 TAB PO (08:51)
[2024-12-05] MEDS: FLUoxetine HCL 20 MG CAPSULE PO (08:51)
[2024-12-05] MEDS: CELECOXIB 200 MG CAPSULE PO (08:51)
[2024-12-05] MEDS: APIXABAN 2.5 MG TABLET PO (08:51)
[2024-12-05] MEDS: guaiFENesin 12 HR 600 MG TABCR 1200 MG PO (08:51)
[2024-12-05] MEDS: amLODIPine BESYLATE 5 MG TABLET PO (08:51)
[2024-12-05] MEDS: FAMOTIDINE 20 MG TABLET PO (08:52)
[2024-12-05 09:40] LABS: Basophils Absolute Auto 0.1 K/mm3 (0.0-0.1); Basophils Percent Auto 0.6 % (0.2-1.2); Eosinophils Absolute Auto 0.9 K/mm3 (0-0.3); Eosinophils Percent Auto 10.3 % (0-4.4); Hemoglobin 10.9 g/dL (12.0-15.0); Immature Granulocyte Absolute 0.03 K/mm3 (0.00-0.031); Immature Granulocyte Percent A 0.3 % (0-0.5); Lymphocytes Absolute Auto 2.02 K/mm3 (0.9-3.2); Mean Corpuscular HGB Conc 31.1 g/dl (32-36); Mean Corpuscular Hemoglobin 29.9 pg (26-34); Mean Corpuscular Volume 95.9 fl (80-100); Mean Platelet Volume 9.9 fl (7.4-10.4); Monocytes Absolute Auto 0.3 K/mm3 (0.1-0.6); Monocytes Percent Auto 3.4 % (2.6-8.5); Neutrophils Absolute Auto 5.5 K/mm3 (1.3-6.7); Neutrophils Percent Auto 62.4 % (45.5-73.1); Platelet Count Result 352 k/mm3 (150-375); Red Blood Count 3.65 M/mm3 (4.2-5.4); Red Cell Distribution Width 14.2 % (11.5-14.5); White Blood Count 8.8 K/mm3 (4.5-10.0)
[2024-12-05 09:57] LABS: Alanine Aminotransferase 19 U/L (6-35); Albumin Level 3.1 g/dL (3.5-5.1); Alkaline Phosphatase 67 U/L (38-126); Anion Gap 7 mmol/L (4-12); Aspartate Amino Transferase 27 U/L (14-36); Bilirubin,Total 0.4 mg/dL (0.2-1.3); Blood Urea Nitrogen 12 mg/dL (7-17); Calcium 8.5 mg/dL (8.4-10.2); Carbon Dioxide 34 mmol/L (22-30); Chloride 102 mmol/L (98-107); Estimated CRCL calculation 111 ml/min; Estimated Glomerular Filt Rate > 60; Glucose 127 mg/dL (65-110); Potassium 3.8 mmol/L (3.4-5.0); Sodium 143 mmol/L (137-145)
--- NOTE | 2024-12-05 11:55 | PM.CNOR ---
Assessment and Plan Assessment and plan (1) History of total hip arthroplasty: Qualifiers: Laterality: left Qualified Code(s): Z96.642 - Presence of left artificial hip joint Code(s): Z96.649 - Presence of unspecified artificial hip joint Status: Acute Assessment and Plan: Postop day 3 after total hip replacement. Patient's pain is well controlled on the oxycodone 2.5 mg as needed every 4 hours and Tylenol. She has been weaned off oxygen and is on room air and her saturation is 92% per my communication with her nurse Ceferino today. This is the same oxygen saturation she had immediately before surgery. The foreign banknote teller trader saw her this morning and communicated with Ceferino that she will need a home O2 evaluation and that she is stable to be discharged today from his standpoint. Her hemoglobin this morning is 10.9. Creatinine 0.51. Her wound is dry. Planned discharge today. Prior to discharge we will ask the hospitalist to sign off on patient not being on Levaquin from her standpoint. Patient did test positive for oxacillin sensitive Staph aureus on her preop nasal swab and therefore she is receiving 10 days of oral antibiotics for prophylaxis against infection and I have prescribed Keflex however if Levaquin were preferred to treat possible pneumonia that could be substituted for the Keflex as the Staph aureus was sensitive to Levaquin as well. Again patient has not reached a temperature of 37 ? centigrade. Her white count is normal at 8.8 and her differential shows no increase in neutrophils. Interestingly her eosinophils are little bit elevated at 10.3%. They were low normal the last 2 days but preop on November 21 they were elevated at 6% and I am unsure of the etiology for that. Patient continues to deny any cough and therefore it would seem unlikely clinically that she has a pneumonia and the infiltrates bibasilar likely atelectasis which was the opinion of the foreign banknote teller trader. History of Present Illness HPI Consult date: 12/05/24 Chief complaint: O A Lt Hip PMFSH Past Medical History Medical History Osteoarthritis Anxiety Primary osteoarthritis of left hip Cigarette nicotine dependence Major depressive disorder, recurrent severe without psychotic features Primary hypertension Surgical History Surgical History History of bladder suspension procedure History of intestinal surgery 2013 for bowel obstruction History of hysterectomy 1996 Family History Family History Sibling Cerebrovascular accident Social History Social History Smoking packs per day: 20 Smoking cigarettes per day: 400.0 Years smoked: 52 Smoking pack-years: 1040.00 Smoking status: Former smoker Tobacco type: cigarettes Second hand tobacco smoke exposure: No Smoking end date: 10/24/24 Additional smoking assessment comments: NON-NICTONE VAPE X6/DAY Alcohol intake: never Alcohol use details: SOCIAL DRINKER IN PAST Substance use: never Substance use type: marijuana Other substance usage details: SMOKES MARIJUANA NIGHTLY Do You Feel Safe in your Home?: Yes Lack of Transportation: No Lack of Food: Never True Current Housing: I Have Housing Concerned About Future Housing: No Difficulty Paying Gas/Electric Bills: No Difficulty Paying for Meds: No Currently Unemployed: No Education: Don't Know Difficulty w/ Childcare or Family Care: No Living arrangements: with family Additional living arrangements comments: [facility] Occupation/Education: retired Gender identity (if verbalized by the patient): Female Sexual Orientation (if Verbalized by the Patient): Straight or Heterosexual Spiritual care concerns: No Meds Home Medications and Allergies Home Medications ?Medication ?Instructions ?Recorded ?Confirmed ?Type amlodipine 5 mg tablet 5 mg PO DAILY #90 tabs 10/31/24 12/01/24 Rx fluoxetine 20 mg capsule 20 mg PO DAILY #90 caps 10/31/24 12/01/24 Rx lisinopril 10 mg tablet 10 mg PO DAILY #90 tabs 10/31/24 12/01/24 Rx acetaminophen 325 mg tablet 650 mg (2 x 325 mg) PO Q4H #90 tabs 12/02/24 Rx apixaban 2.5 mg tablet (Eliquis) 2.5 mg PO Q12HR #70 tabs 12/02/24 Rx celecoxib 200 mg capsule (Celebrex) 200 mg PO DAILY #10 caps 12/02/24 Rx cephalexin 500 mg capsule 500 mg PO Q6HR #40 caps 12/02/24 Rx oxycodone 5 mg tablet 5 mg PO Q4H PRN pain #40 tabs 03/18/25 Rx polyethylene glycol 3350 17 gram 17 g PO QAM #30 ea 12/02/24 Rx oral powder packet (Miralax) sennosides 8.6 mg-docusate sodium 2 tab-cap (2 x 8.6-50 mg) PO BID 12/02/24 Rx 50 mg tablet (Senokot-S) #60 tabs Allergies Allergy/AdvReac Type Severity Reaction Status Date / Time Penicillins Allergy Unknown Hives, Verified 12/01/24 07:22 FACE SWELLING Vital Signs Vital Signs - 24 hr 12/04/24 14:31 12/04/24 14:31 12/04/24 14:41 Temperature Pulse Rate 77 77 78 Respiratory Rate 20 20 20 Blood Pressure Pulse Oximetry 93 Oxygen Delivery Nasal Cannula Oxygen Flow Rate 3 12/04/24 16:04 12/04/24 21:00 12/04/24 21:09 Temperature 36.5 C 36.5 C Pulse Rate 78 72 Respiratory Rate 16 14 Blood Pressure 108/71 116/64 Pulse Oximetry 97 98 100 Oxygen Delivery Nasal Cannula Oxygen Flow Rate 3 12/04/24 21:19 12/05/24 05:59 12/05/24 08:01 Temperature 36.4 C L Pulse Rate 71 75 72 Respiratory Rate 20 14 20 Blood Pressure 140/84 Pulse Oximetry 100 Oxygen Delivery Oxygen Flow Rate 12/05/24 08:11 Temperature Pulse Rate 75 Respiratory Rate 20 Blood Pressure Pulse Oximetry Oxygen Delivery Oxygen Flow Rate Results Labs 12/05/24 09:29 12/05/24 09:29 Labs: Abnormal lab results 12/05/24 Range/Units 09:29 RBC 3.65 L (4.2-5.4) M/mm3 Hgb 10.9 L (12.0-15.0) g/dL Hct 35.0 L (37.0-47.0) % MCHC 31.1 L (32-36) g/dl Eos % (Auto) 10.3 H (0-4.4) % Eos # (Auto) 0.9 H (0-0.3) K/mm3 Carbon Dioxide 34 H (22-30) mmol/L Creatinine 0.51 L (0.7-1.0) mg/dL Glucose 127 H (65-110) mg/dL Total Protein 6.0 L (6.3-8.2) g/dL Albumin 3.1 L (3.5-5.1) g/dL H & H 12/02/24 12/03/24 12/05/24 Range/Units 06:04 07:39 09:29 Hgb 11.6 L D 10.8 L 10.9 L (12.0-15.0) g/dL Hct 37.1 34.0 L 35.0 L (37.0-47.0) % All other labs normal.
--- NOTE | 2024-12-05 12:09 | P.DS_ITS ---
DS: Admitting Diagnosis Discharge Date 12/05/24 Admitting Diagnosis Advanced osteoarthritis left hip DS: Discharge Diagnosis Discharge Diagnosis (1) Atelectasis of both lungs: Code(s): J98.11 - Atelectasis Status: Acute (2) Hypoxemia: Code(s): R09.02 - Hypoxemia Status: Acute (3) History of total hip arthroplasty: Qualifiers: Laterality: left Qualified Code(s): Z96.642 - Presence of left artificial hip joint Code(s): Z96.649 - Presence of unspecified artificial hip joint Status: Acute DS: Summary Hospital Course Hospital Course: Patient underwent a left total hip arthroplasty on 12/02/2024. The morning after surgery she was noted to desaturate to 85% on room air when doing physical therapy. At rest on the gurney before being wheeled back to the operating room before surgery her oxygen saturation was 92% on room air. Supplemental oxygen was initiated and chest x-ray showed bibasilar infiltrates consistent with pneumonia versus atelectasis. She was started on Levaquin in case this represented pneumonia. During the hospitalization her white count was always normal and was 8.8 today with no left shift no increase in neutrophils. Her numerous temperatures that were checked were always below 37? centigrade and she did not have a cough during the hospitalization. She did not notice feeling short of breath. We consult the power sewing machine operator who saw her yesterday and felt she had atelectasis. Her Levaquin was stopped. She was weaned off the oxygen fully today and her oxygen saturation was 92% again. The power sewing machine operator felt she should have a home over to evaluation and felt she was stable for discharge today per nurse communication. His note is not available yet. Her hemoglobin today is 10.9 platelets [id number]. She is being discharged with Eliquis 2.5 mg twice daily for a total of 5 weeks, Celebrex 200 mg daily for 10 days after surgery for prophylaxis against heterotopic ossification, Keflex for 10 days after surgery for extended oral antibiotics due to nasal swab being positive for oxacillin sensitive Staph aureus, MiraLax and ike Colace for constipation prophylaxis, Tylenol and oxycodone for pain control. The power sewing machine operator recommended lower dose narcotics and hourly use of the incentive spirometer to address the atelectasis. She is instructed to stop the ibuprofen 800 mg t.i.d. that she was taking before surgery. She is weight-bearing as tolerated with a walker methods time analyst. She had good cortical bone thickness at surgery but her cancellous bone was exceedingly soft and therefore I have recommended that she have a bone density test scheduled on an outpatient basis of the right hip and lumbar spine. She does have osteoarthritis in the right hip as well that is bone touching bone but the central femoral neck may give an accurate bone density estimation. I have prescribed calcium plus vitamin-D supplement to take 1 pill twice a day in the meantime. She had rather intense hypertrophic synovitis in her hip and a large effusion. I ordered a rheumatoid factor and anti CCP. The rheumatoid factor was slightly elevated but the anti CCP was negative therefore there is no unequivocal evidence that she has rheumatoid arthritis. It is possible that her degree of inflammation and effusion are due to the advanced degree of bone wear and destruction in that left hip. Status at Discharge Cognitive/behavioral status at discharge: Patient was alert and oriented. Time Spent with Patient Time attestation: Total time spent providing and/or coordinating discharge services: DS: Data Data Completed and Pending Labs on day of discharge: Labs from last 24 hours 12/05/24 09:29 WBC 8.8 RBC 3.65 L Hgb 10.9 L Hct 35.0 L MCV 95.9 MCH 29.9 MCHC 31.1 L RDW 14.2 Plt Count 352 MPV 9.9 Immature Gran % (Auto) 0.3 Neut % (Auto) 62.4 Lymph % (Auto) 23.0 [place] % (Auto) 3.4 Eos % (Auto) 10.3 H Baso % (Auto) 0.6 Lymph # (Auto) 2.02 [place] # (Auto) 0.3 Eos # (Auto) 0.9 H Baso # (Auto) 0.1 Abs Immat Gran (auto) 0.03 Absolute Neuts (auto) 5.5 Absolute Nucleated RBC 0.000 Nucleated RBC % 0.0 Sodium 143 Potassium 3.8 Chloride 102 Carbon Dioxide 34 H Anion Gap 7 BUN 12 Creatinine 0.51 L Estim Creat Clear Calc 111 Estimated GFR > 60 Glucose 127 H Calcium 8.5 Total Bilirubin 0.4 AST 27 ALT 19 Alkaline Phosphatase 67 Total Protein 6.0 L Albumin 3.1 L Discharge Plan Discharge Attending physician on discharge: Graham Hudson Consulting providers: Leda Rubalcava; Daryn Lane Discharging Clinician: Graham Hudson Patient Disposition: Home, Self-Care Activity: may shower Diet: regular Wound Care Instructions: follow printed instructions Discharge Instructions: GRAHAM HUDSON M.D [facility] [address] [place] [address] POST-OPERATIVE DISCHARGE INSTRUCTIONS ANTERIOR TOTAL HIP ARTHROPLASTY 1. Move toes/feet up and down every hour while awake. 2. Be up walking every hour while awake. 3. Use walker methods time analyst if instructed to use walker methods time analyst.When you are allowed to use the cane, use the cane in the opposite hand. 4. When resting, do not rest in the chair. Rather, lie on your back, with back flat, and the leg elevated above heart to minimize swelling. You may put a pillow under your head. Do not rest in a chair. Resting in the chair results in swelling in the leg. Significant swelling could indicate a blood clot and if this occurs, call the office (or go to the ER) to have a venous ultrasound performed. Its ok to sit in the chair to eat and use the toilet and to receive a guest but sitting in a chair will cause your leg to swell. so try to minimize sitting in a chair. 5. Wound Care: Apply a folded 4x4 sponge to incision and hold with crossing strips of 1 inch Transpore tape. 6. Patient should use walker methods time analyst until seen in office 7. May shower. Remove dressing before shower and reapply dressing after shower. The power sewing machine operator has recommended that you have a home O2 evaluation. Please make sure to follow-up with this recommendation. Please completely refrain from smoking. If you resume smoking your risk of having infection in your hip replacement is very high especially during the next 6 weeks. Smoking will also damage your lungs further. Before you went in to the operating room, your oxygen level was diminished at 92% on room air. This morning at discharge year oxygen level was 92% on room air. This is low in indicates significant lung damage and this is the reason for the recommendation for possible oxygen supplementation at home. Please use the incentive spirometer every morning while awake to fully expand your lungs which will optimize year lung efficiency and oxygen levels. For pain, try the half 5 mg tablet of oxycodone every 4 hours as needed unless her pain is rather severe than use a whole 5 mg tablet. Your breathing will be better on the smaller dose of oxycodone. Please call my office and initiate scheduling a bone density test for the osteoporosis we found at time of surgery. We checked blood tests to see if you had rheumatoid arthritis as there was severe inflammation around the left hip. The tests were nondiagnostic for rheumatoid arthritis however those tests do not rule out the possibility of rheumatoid arthritis and if you start having arthritis in other joints besides her hips and knees it may be appropriate to have you see a soil surveyor. Patient Instructions: Apixaban (By mouth) Patient Language: Swedish Stand Alone Forms: General Discharge Instructions Follow-up/Referrals: Graham Hudson MD [Physician] - Keep Reg. Scheduled Appt. Discharge Medications: New acetaminophen 325 mg Tablet 650 mg PO Q4H Qty: 90 0RF sennosides-docusate sodium [Senokot-S] 8.6-50 mg Tablet 2 tab-cap PO BID Qty: 60 0RF Eliquis 2.5 mg Tablet 2.5 mg PO Q12HR Qty: 70 0RF polyethylene glycol 3350 [Miralax] 17 gram Powder In Packet 17 g PO QAM Qty: 30 0RF oxycodone 5 mg Tablet 5 mg PO Q4H PRN (Reason: pain) Qty: 40 0RF cephalexin 500 mg capsule 500 mg PO Q6H Qty: 32 0RF calcium-vitamin D3-vitamin K [Citracal-D3 Soft Chew] 500 mg-1,000 unit-40 mcg tablet,chewable 1 tablet PO BID Qty: 60 5RF levofloxacin 750 mg tablet 750 mg PO DAILY Qty: 3 0RF celecoxib [Celebrex] 200 mg capsule 200 mg PO DAILY Qty: 7 0RF Continued amlodipine 5 mg tablet 5 mg PO DAILY Qty: 90 1RF Patient Comments: QAM fluoxetine 20 mg capsule 20 mg PO DAILY Qty: 90 1RF Patient Comments: QAM lisinopril 10 mg tablet 10 mg PO DAILY Qty: 90 0RF Patient Comments: QAM Discontinued ibuprofen 800 mg tablet 800 mg PO TID PRN (Reason: pain) Qty: 90 0RF Date of admission: 12/03/24 15:16 Primary Care Provider: Cayden Sullivan Admitting Provider: Graham Hudson Attending physician on admission: Graham Hudson Condition: Stable
--- NOTE | 2024-12-05 13:26 | P.PNPL_ITS ---
Progress Note: A&P Assessment and Plan (1) Hypoxemia: Code(s): R09.02 - Hypoxemia Status: Acute (2) Atelectasis of both lungs: Code(s): J98.11 - Atelectasis Status: Acute Assessment and Plan: The patient's respiratory status has significantly improved following intensive use of incentive spirometry, administration of Lasix 20 mg IV, and ambulation. She is being discharged today and does not require supplemental oxygen for home use. I have given the patient the contact information for the [facility]monary [facility] to schedule an appointment for evaluation of possible underlying COPD and sleep- disordered breathing. The patient has been instructed to continue using incentive spirometry daily. I will sign off now; please feel free to call if there are any questions. (3) Obesity: Code(s): E66.9 - Obesity, unspecified Status: Acute (4) Cigarette nicotine dependence: Qualifiers: Substance use status: uncomplicated Qualified Code(s): F17.210 - Nicotine dependence, cigarettes, uncomplicated Code(s): F17.210 - Nicotine dependence, cigarettes, uncomplicated Status: Acute (5) History of total hip arthroplasty: Qualifiers: Laterality: left Qualified Code(s): Z96.642 - Presence of left artificial hip joint Code(s): Z96.649 - Presence of unspecified artificial hip joint Status: Acute Subjective Date/time seen: 12/05/24 13:26 Interval history: Patient doing better this a.m.. Currently on room air with no new respiratory symptoms. She was able to walk in the hallway without supplemental oxygen and with no drop in her oxyhemoglobin saturation. Review of Systems Review of Systems: All systems reviewed & are unremarkable except as noted in HPI and below (HPI and below) Exam Narrative: GENERAL APPEARANCE: Well developed, well nourished, alert and cooperative, and appears to be in no acute distress while on supplemental oxygen SKIN: Inspection of the skin reveals no rashes, ulcerations or petechiae. HEENT: Sclerae anicteric and conjunctivae pink and moist. Extraocular movements were intact and pupils were equal, round, and reactive to light. The oral mucosa, hard and soft palate, tongue and posterior pharynx were normal. NECK: Supple. There was no thyroid enlargement, and no tenderness, or masses were felt. CHEST: Normal AP diameter and normal contour without any kyphoscoliosis. LUNGS: Clear lungs bilaterally no crackles no wheezing CARDIAC: There was a regular rate and rhythm without any murmurs, gallops, rubs. ABDOMEN: Soft and nontender with normal bowel sounds. There was no organomegaly. LYMPH NODES: No lymphadenopathy was appreciated in the neck. EXTREMITIES: No cyanosis, clubbing or edema. NEUROLOGIC: Alert and oriented x 3. Normal affect. Objective Data Vital Signs Vital Signs: Vital Signs - 24 hr 12/04/24 14:31 12/04/24 14:31 12/04/24 14:41 Temperature Pulse Rate 77 77 78 Respiratory Rate 20 20 20 Blood Pressure Pulse Oximetry 93 Oxygen Delivery Nasal Cannula Oxygen Flow Rate 3 12/04/24 16:04 12/04/24 21:00 12/04/24 21:09 Temperature 36.5 C 36.5 C Pulse Rate 78 72 Respiratory Rate 16 14 Blood Pressure 108/71 116/64 Pulse Oximetry 97 98 100 Oxygen Delivery Nasal Cannula Oxygen Flow Rate 3 12/04/24 21:19 12/05/24 05:59 12/05/24 08:01 Temperature 36.4 C L Pulse Rate 71 75 72 Respiratory Rate 20 14 20 Blood Pressure 140/84 Pulse Oximetry 100 Oxygen Delivery Oxygen Flow Rate 12/05/24 08:11 12/05/24 12:15 12/05/24 12:20 Temperature Pulse Rate 75 82 99 Respiratory Rate 20 Blood Pressure Pulse Oximetry 95 91 Oxygen Delivery Room Air Room Air Oxygen Flow Rate 12/05/24 12:30 Temperature Pulse Rate 86 Respiratory Rate Blood Pressure Pulse Oximetry 94 Oxygen Delivery Room Air Oxygen Flow Rate Intake/Output Intake/Output: Intake & Output 12/02/24 12/03/24 12/04/24 12/05/24 23:59 23:59 23:59 23:59 Intake Total 303 445 1587 790 Output Total 900 0 Balance 60 716 1330 790 Meds/Results Medications: Active Medications Generic Name Dose Route Start Last Admin Trade Name Freq PRN Reason Stop Dose Admin Acetaminophen 650 mg 12/01/24 14:00 12/05/24 08:52 Acetaminophen 325 Mg Tablet PO 650 mg Q4H JENNIFER Administration Albuterol/Ipratropium 3 ml 12/02/24 14:00 12/05/24 08:01 Ipratropium 0.5 Mg/Albuterol Sulfate 2.5 Mg Ampul.Neb 3 Ml INHALATION 3 ml Q6HRT JENNIFER Administration Amlodipine Besylate 5 mg 12/02/24 09:00 12/05/24 08:51 Amlodipine Besylate 5 Mg Tablet PO 5 mg DAILY JENNIFER Administration Apixaban 2.5 mg 12/02/24 09:00 12/05/24 08:51 Apixaban 2.5 Mg Tablet PO 2.5 mg Q12HR JENNIFER Administration Celecoxib 200 mg 12/02/24 09:00 12/05/24 08:51 Celecoxib 200 Mg Capsule PO 200 mg DAILY JENNIFER Administration Cephalexin HCl 500 mg 12/02/24 12:00 12/05/24 11:11 Cephalexin 500 Mg Capsule PO 500 mg Q6HR JENNIFER Administration Diphenhydramine HCl 25 mg 12/01/24 14:28 Diphenhydramine Hcl Inj 50 Mg/Ml Vial IV PUSH Q6H PRN Itching Famotidine 20 mg 12/01/24 21:00 12/05/24 08:52 Famotidine 20 Mg Tablet PO 20 mg Q12HR JENNIFER Administration Fluoxetine HCl 20 mg 12/02/24 09:00 12/05/24 08:51 Fluoxetine Hcl 20 Mg Capsule PO 20 mg DAILY JENNIFER Administration Guaifenesin 1,200 mg 12/03/24 21:00 12/05/24 08:51 Guaifenesin 12 Hr 600 Mg Tabcr PO 1,200 mg Q12HR JENNIFER Administration Naloxone HCl 0.1 mg 12/01/24 14:28 Naloxone Hcl 0.4 Mg/Ml Vial IV PUSH Q2M PRN Opiate Reversal Ondansetron HCl 4 mg 12/01/24 14:28 Ondansetron Inj 4 Mg/2 Ml Vial IV PUSH Q4H PRN Nausea And Vomiting Oxycodone HCl 2.5 mg 12/04/24 16:06 12/05/24 08:50 Oxycodone Hcl (*Crx) 2.5 Mg Tab Ir PO 2.5 mg Q4H PRN Administration Pain Rated 4-6 Oxycodone HCl 5 mg 12/05/24 10:42 Oxycodone Hcl (*Crx) 5 Mg Tab Ir PO Q4H PRN Pain Rated 7-10 Polyethylene Glycol 17 gm 12/02/24 09:00 12/05/24 08:50 Polyethylene Glycol 3350 17 Gm Powd.Pack PO 17 gm QAM JENNIFER Administration Senna/Docusate Sodium 2 tab 12/01/24 17:00 12/05/24 08:51 Senna/Docusate Sodium Tablet PO 2 tab BID JENNIFER Administration Radiology Results: ITS Impressions Hip/Pelvis X-Ray 12/01/24 12:57 IMPRESSION: No acute osseous abnormality pelvis and left hip area. Left hip arthroplasty. Severe right hip osteoarthritic changes. Intraoperative X-Ray 12/01/24 13:00 IMPRESSION: 1. Fluoroscopy utilized during placement of a noncemented left total hip arthroplasty with expected appearance. Chest X-Ray 12/03/24 10:59 IMPRESSION: 1. Persistent airspace opacities in the bilateral lower lung zones with slight progression on the left which could represent atelectasis and/or pneumonia. Labs Labs: Laboratory Results - last 24 hr 12/05/24 09:29 WBC 8.8 RBC 3.65 L Hgb 10.9 L Hct 35.0 L MCV 95.9 MCH 29.9 MCHC 31.1 L RDW 14.2 Plt Count 352 MPV 9.9 Immature Gran % (Auto) 0.3 Neut % (Auto) 62.4 Lymph % (Auto) 23.0 [place] % (Auto) 3.4 Eos % (Auto) 10.3 H Baso % (Auto) 0.6 Lymph # (Auto) 2.02 [place] # (Auto) 0.3 Eos # (Auto) 0.9 H Baso # (Auto) 0.1 Abs Immat Gran (auto) 0.03 Absolute Neuts (auto) 5.5 Absolute Nucleated RBC 0.000 Nucleated RBC % 0.0 Sodium 143 Potassium 3.8 Chloride 102 Carbon Dioxide 34 H Anion Gap 7 BUN 12 Creatinine 0.51 L Estim Creat Clear Calc 111 Estimated GFR > 60 Glucose 127 H Calcium 8.5 Total Bilirubin 0.4 AST 27 ALT 19 Alkaline Phosphatase 67 Total Protein 6.0 L Albumin 3.1 L
--- NOTE | 2024-12-05 14:27 | P.PNIM_ITS ---
Progress Note: A&P Assessment and Plan (1) Primary osteoarthritis of left hip: Code(s): M16.12 - Unilateral primary osteoarthritis, left hip Status: Acute Assessment and Plan: * patient is postop day 1 from a left total hip arthroplasty with Dr. Domingo * PT and OT ordered * continue hip precautions * continue incentive spirometry while awake * continue pain control * continue Eliquis for DVT prophylaxis * full weight-bearing status 12/03 * No change to current treatment plan (2) Pneumonia: Code(s): J18.9 - Pneumonia, unspecified organism Status: Inactive Assessment and Plan: * CXR from 12/03/24 still showing persistent airspace opacities in the bilateral lower lung zones with slight progression on the left * Currently on 3L NC * Continue Duonebs * Continue to wean O2 for a saturation greater than 92% * Will likely need home O2 eval before dischaging * Continue Levaquin * Continue Mucinex 12/05 * Off oxygen * Levaquin discontinued (3) Major depressive disorder, recurrent severe without psychotic features: Code(s): F33.2 - Major depressive disorder, recurrent severe without psychotic features Status: Acute Assessment and Plan: * continue Prozac (4) Anxiety: Code(s): F41.9 - Anxiety disorder, unspecified Status: Acute Assessment and Plan: * continue Prozac (5) Primary hypertension: Code(s): I10 - Essential (primary) hypertension Status: Acute Assessment and Plan: * blood pressure ranging 108/70 to 118/72 * continue amlodipine (6) Cigarette nicotine dependence: Qualifiers: Substance use status: uncomplicated Qualified Code(s): F17.210 - Nicotine dependence, cigarettes, uncomplicated Code(s): F17.210 - Nicotine dependence, cigarettes, uncomplicated Status: Acute Assessment and Plan: * 1 pack per day for 52 years, quit this past October. Time Spent With Patient Time with patient: 15 - 25 minutes Subjective Date/time seen: 12/05/24 14:27 Interval history: Interval history: Jennie Cedeno is a 64 year old female with a significant past medical history of major depressive disorder, hypertension, nicotine dependence, marijuana abuse, osteoarthritis who presented for an elective left total hip arthroplasty performed by Dr. Domingo. We were consulted for medical management while inpatient. Subjective: Patient denies any new complaints today. She is currently is currently on room air. She had home O2 eval and did not require home Oxygen. She is stable for discharge from our standpoint. Labs reviewed. Review of Systems Review of Systems: All systems reviewed & are unremarkable except as noted in HPI and below Exam Narrative: General: In no acute distress, well nourished Cardiac: Normal S1 and S2. No murmur, gallops or friction rubs, peripheral pulses intact. Respiratory: Lungs clear to auscultation. currently on room air Gastrointestinal: soft, non-distended, non-tender, normoactive bowel sounds. : voiding without difficulty. Skin: left hip incision with OR dressing in place Neuro: Alert and oriented x4 Objective Data Vital Signs Vital Signs: Vital Signs - 24 hr 12/04/24 14:31 12/04/24 14:31 12/04/24 14:41 Temperature Pulse Rate 77 77 78 Respiratory Rate 20 20 20 Blood Pressure Pulse Oximetry 93 Oxygen Delivery Nasal Cannula Oxygen Flow Rate 3 12/04/24 16:04 12/04/24 21:00 12/04/24 21:09 Temperature 97.7 F 97.7 F Pulse Rate 78 72 Respiratory Rate 16 14 Blood Pressure 108/71 116/64 Pulse Oximetry 97 98 100 Oxygen Delivery Nasal Cannula Oxygen Flow Rate 3 12/04/24 21:19 12/05/24 05:59 12/05/24 08:01 Temperature 97.5 F L Pulse Rate 71 75 72 Respiratory Rate 20 14 20 Blood Pressure 140/84 Pulse Oximetry 100 Oxygen Delivery Oxygen Flow Rate 12/05/24 08:11 12/05/24 12:15 12/05/24 12:20 Temperature Pulse Rate 75 82 99 Respiratory Rate 20 Blood Pressure Pulse Oximetry 95 91 Oxygen Delivery Room Air Room Air Oxygen Flow Rate 12/05/24 12:30 12/05/24 13:33 Temperature Pulse Rate 86 72 Respiratory Rate 20 Blood Pressure Pulse Oximetry 94 Oxygen Delivery Room Air Oxygen Flow Rate Intake/Output Intake/Output: Intake & Output 12/02/24 12/03/24 12/04/24 12/05/24 23:59 23:59 23:59 23:59 Intake Total 221 958 1124 790 Output Total 900 0 Balance 60 716 1330 790 Meds/Results Medications: Active Medications Generic Name Dose Route Start Last Admin Trade Name Freq PRN Reason Stop Dose Admin Acetaminophen 650 mg 12/01/24 14:00 12/05/24 08:52 Acetaminophen 325 Mg Tablet PO 650 mg Q4H JENNIFER Administration Albuterol/Ipratropium 3 ml 12/02/24 14:00 12/05/24 13:33 Ipratropium 0.5 Mg/Albuterol Sulfate 2.5 Mg Ampul.Neb 3 Ml INHALATION 3 ml Q6HRT JENNIFER Administration Amlodipine Besylate 5 mg 12/02/24 09:00 12/05/24 08:51 Amlodipine Besylate 5 Mg Tablet PO 5 mg DAILY JENNIFER Administration Apixaban 2.5 mg 12/02/24 09:00 12/05/24 08:51 Apixaban 2.5 Mg Tablet PO 2.5 mg Q12HR JENNIFER Administration Celecoxib 200 mg 12/02/24 09:00 12/05/24 08:51 Celecoxib 200 Mg Capsule PO 200 mg DAILY JENNIFER Administration Cephalexin HCl 500 mg 12/02/24 12:00 12/05/24 11:11 Cephalexin 500 Mg Capsule PO 500 mg Q6HR JENNIFER Administration Diphenhydramine HCl 25 mg 12/01/24 14:28 Diphenhydramine Hcl Inj 50 Mg/Ml Vial IV PUSH Q6H PRN Itching Famotidine 20 mg 12/01/24 21:00 12/05/24 08:52 Famotidine 20 Mg Tablet PO 20 mg Q12HR JENNIFER Administration Fluoxetine HCl 20 mg 12/02/24 09:00 12/05/24 08:51 Fluoxetine Hcl 20 Mg Capsule PO 20 mg DAILY JENNIFER Administration Guaifenesin 1,200 mg 12/03/24 21:00 12/05/24 08:51 Guaifenesin 12 Hr 600 Mg Tabcr PO 1,200 mg Q12HR JENNIFER Administration Naloxone HCl 0.1 mg 12/01/24 14:28 Naloxone Hcl 0.4 Mg/Ml Vial IV PUSH Q2M PRN Opiate Reversal Ondansetron HCl 4 mg 12/01/24 14:28 Ondansetron Inj 4 Mg/2 Ml Vial IV PUSH Q4H PRN Nausea And Vomiting Oxycodone HCl 2.5 mg 12/04/24 16:06 12/05/24 08:50 Oxycodone Hcl (*Crx) 2.5 Mg Tab Ir PO 2.5 mg Q4H PRN Administration Pain Rated 4-6 Oxycodone HCl 5 mg 12/05/24 10:42 Oxycodone Hcl (*Crx) 5 Mg Tab Ir PO Q4H PRN Pain Rated 7-10 Polyethylene Glycol 17 gm 12/02/24 09:00 12/05/24 08:50 Polyethylene Glycol 3350 17 Gm Powd.Pack PO 17 gm QAM JENNIFER Administration Senna/Docusate Sodium 2 tab 12/01/24 17:00 12/05/24 08:51 Senna/Docusate Sodium Tablet PO 2 tab BID JENNIFER Administration Radiology Results: ITS Impressions Hip/Pelvis X-Ray 12/01/24 12:57 IMPRESSION: No acute osseous abnormality pelvis and left hip area. Left hip arthroplasty. Severe right hip osteoarthritic changes. Intraoperative X-Ray 12/01/24 13:00 IMPRESSION: 1. Fluoroscopy utilized during placement of a noncemented left total hip arthroplasty with expected appearance. Chest X-Ray 12/03/24 10:59 IMPRESSION: 1. Persistent airspace opacities in the bilateral lower lung zones with slight progression on the left which could represent atelectasis and/or pneumonia. Labs Labs: Laboratory Results - last 24 hr 12/05/24 09:29 WBC 8.8 RBC 3.65 L Hgb 10.9 L Hct 35.0 L MCV 95.9 MCH 29.9 MCHC 31.1 L RDW 14.2 Plt Count 352 MPV 9.9 Immature Gran % (Auto) 0.3 Neut % (Auto) 62.4 Lymph % (Auto) 23.0 [place] % (Auto) 3.4 Eos % (Auto) 10.3 H Baso % (Auto) 0.6 Lymph # (Auto) 2.02 [place] # (Auto) 0.3 Eos # (Auto) 0.9 H Baso # (Auto) 0.1 Abs Immat Gran (auto) 0.03 Absolute Neuts (auto) 5.5 Absolute Nucleated RBC 0.000 Nucleated RBC % 0.0 Sodium 143 Potassium 3.8 Chloride 102 Carbon Dioxide 34 H Anion Gap 7 BUN 12 Creatinine 0.51 L Estim Creat Clear Calc 111 Estimated GFR > 60 Glucose 127 H Calcium 8.5 Total Bilirubin 0.4 AST 27 ALT 19 Alkaline Phosphatase 67 Total Protein 6.0 L Albumin 3.1 L Quality VTE Prophylaxis VTE prophylaxis: pharmacologic ordered
--- NOTE | 2024-12-05 15:06 | PCRCNOTE ---
Home O2 eval done, no home o2 needed at this time, RN notified.
--- NOTE | 2024-12-08 14:31 | PM.DS ---
DS: Admitting Diagnosis Discharge Date 12/05/24 Admitting Diagnosis DJD left hip DS: Discharge Diagnosis Discharge Diagnosis (1) Primary osteoarthritis of left hip: Code(s): M16.12 - Unilateral primary osteoarthritis, left hip Status: Acute DS: Summary Hospital Course Hospital Course: 64-year-old female underwent left anterior total hip arthroplasty on 12/01. Patient went to procedure without complications. Morning of postop day 1 patient was alert. Pain was well controlled. Her drain was out dressing was dry. Patient was getting up with therapy on the morning of postop day 1 and her oxygen saturations dropped. She was in the mid 80s. She is not having any chest pain or significant shortness of breath. Patient was evaluated by the hospitalist just x-ray was done which showed some bibasilar lung changes versus atelectasis. She was initially started on breathing treatments with hospitalist as well as Levaquin, there was concern she may be developing pneumonia. Patient required 2 L of oxygen to maintain her saturations in the mid 90s. Blood gas was done which showed her O2 saturation at 65. PCO2 was normal. Patient was not having significant shortness of breath. Over the next 2 days patient was continuously needing oxygen to maintain her saturations. Pulmonology was consulted. They recommended patient's narcotic use to be minimized. Also the stop the Levaquin. They felt that patient's most likely had some degree of significant COPD from her longstanding smoking history. On 12/05 patient is breathing had improved. She was not requiring oxygen to maintain her saturations. Pulmonology is going to worker up outpatient for COPD and treatment for that. Patient never had a spike in her white count that would correlate to pneumonia. Hemoglobin was stable after postop day 2. Patient's dressing has been dry and intact. She is weight-bearing as tolerated and is getting around relatively well with a walker. She will be discharged home on 12/05. She is on Eliquis for 5 weeks for DVT prophylaxis. She will be on a 10 day course Celebrex as well as Keflex due to positive nasal swab for JUAN. Patient was advised any questions or concerns she is to call the office Time Spent with Patient Time attestation: Total time spent providing and/or coordinating discharge services: Discharge Plan Discharge Attending physician on discharge: Graham Hudson Consulting providers: Daryn Lane,Brittaney M.; Alex Dye; Jose Barker; Olaf Sultana Jr.; Jerald Joaquin; Magdiel Rosario; Graham Alciea Discharging Clinician: Graham Hudson Patient Disposition: Home, Self-Care Activity: may shower Diet: regular Wound Care Instructions: follow printed instructions Discharge Instructions: GRAHAM HUDSON M.D [facility] [address] [address] [place] [address] POST-OPERATIVE DISCHARGE INSTRUCTIONS ANTERIOR TOTAL HIP ARTHROPLASTY 1. Move toes/feet up and down every hour while awake. 2. Be up walking every hour while awake. 3. Use walker housekeeping coordinator if instructed to use walker housekeeping coordinator.When you are allowed to use the cane, use the cane in the opposite hand. 4. When resting, do not rest in the chair. Rather, lie on your back, with back flat, and the leg elevated above heart to minimize swelling. You may put a pillow under your head. Do not rest in a chair. Resting in the chair results in swelling in the leg. Significant swelling could indicate a blood clot and if this occurs, call the office (or go to the ER) to have a venous ultrasound performed. Its ok to sit in the chair to eat and use the toilet and to receive a guest but sitting in a chair will cause your leg to swell. so try to minimize sitting in a chair. 5. Wound Care: Apply a folded 4x4 sponge to incision and hold with crossing strips of 1 inch Transpore tape. 6. Patient should use walker housekeeping coordinator until seen in office 7. May shower. Remove dressing before shower and reapply dressing after shower. The safety deposit supervisor has recommended that you have a home O2 evaluation. Please make sure to follow-up with this recommendation. Please completely refrain from smoking. If you resume smoking your risk of having infection in your hip replacement is very high especially during the next 6 weeks. Smoking will also damage your lungs further. Before you went in to the operating room, your oxygen level was diminished at 92% on room air. This morning at discharge year oxygen level was 92% on room air. This is low in indicates significant lung damage and this is the reason for the recommendation for possible oxygen supplementation at home. Please use the incentive spirometer every morning while awake to fully expand your lungs which will optimize year lung efficiency and oxygen levels. For pain, try the half 5 mg tablet of oxycodone every 4 hours as needed unless her pain is rather severe than use a whole 5 mg tablet. Your breathing will be better on the smaller dose of oxycodone. Please call my office and initiate scheduling a bone density test for the osteoporosis we found at time of surgery. We checked blood tests to see if you had rheumatoid arthritis as there was severe inflammation around the left hip. The tests were nondiagnostic for rheumatoid arthritis however those tests do not rule out the possibility of rheumatoid arthritis and if you start having arthritis in other joints besides her hips and knees it may be appropriate to have you see a gas adjuster. Patient Instructions: Apixaban (By mouth) Patient Language: Telugu Stand Alone Forms: General Discharge Instructions Follow-up/Referrals: Graham Hudson MD [Physician] - Keep Reg. Scheduled Appt. Discharge Medications: New acetaminophen 325 mg Tablet 650 mg PO Q4H Qty: 90 0RF sennosides-docusate sodium [Senokot-S] 8.6-50 mg Tablet 2 tab-cap PO BID Qty: 60 0RF Eliquis 2.5 mg Tablet 2.5 mg PO Q12HR Qty: 70 0RF polyethylene glycol 3350 [Miralax] 17 gram Powder In Packet 17 g PO QAM Qty: 30 0RF oxycodone 5 mg Tablet 5 mg PO Q4H PRN (Reason: pain) Qty: 40 0RF calcium-vitamin D3-vitamin K [Citracal-D3 Soft Chew] 500 mg-1,000 unit-40 mcg tablet,chewable 1 tablet PO BID Qty: 60 5RF celecoxib [Celebrex] 200 mg capsule 200 mg PO DAILY Qty: 7 0RF cephalexin 500 mg capsule 500 mg PO Q6H Qty: 32 0RF Continued amlodipine 5 mg tablet 5 mg PO DAILY Qty: 90 1RF Patient Comments: QAM fluoxetine 20 mg capsule 20 mg PO DAILY Qty: 90 1RF Patient Comments: QAM lisinopril 10 mg tablet 10 mg PO DAILY Qty: 90 0RF Patient Comments: QAM Discontinued ibuprofen 800 mg tablet 800 mg PO TID PRN (Reason: pain) Qty: 90 0RF Date of admission: 12/03/24 15:16 Primary Care Provider: Cayden Sullivan Admitting Provider: Graham Hudson Attending physician on admission: Graham Hudson Condition: Improved
== END 2024-12-05 16:00 | disposition home or self-care (01) | DRG 469 ==
LOC: ANHSURGERY 16:35 → ANH3MEDSUR 16:35
PROVIDERS: Nurse Practitioner Acute Care; Physician Assistant Surgical; Admitting Provider Orthopaedic Surgery; PCP Family Medicine; Visit Provider Orthopaedic Surgery
PROC: 0SRB04Z Replacement of Left Hip Joint with Ceramic on Polyethylene Synthetic Substitute, Open Approach (ICD-10-PCS; CPT 27130; principal; 2024-12-01 07:30)
DX: M16.0 Bilateral primary osteoarthritis of hip (principal); J15.211 Pneumonia due to Methicillin susceptible Staphylococcus aureus; I10 Essential (primary) hypertension; E66.9 Obesity, unspecified; F41.9 Anxiety disorder, unspecified; F32.A Depression, unspecified; F12.10 Cannabis abuse, uncomplicated; Z20.822 Contact with and (suspected) exposure to COVID-19; Z79.01 Long term (current) use of anticoagulants; Z88.0 Allergy status to penicillin; Z68.32 Body mass index [BMI] 32.0-32.9, adult; Z87.891 Personal history of nicotine dependence
CPT/HCPCS: 36415; 36600; 71045; 73501; 80048; 80053; 82805; 85018; 85025; 86200; 86430; 87637; 94618; 94640; 97110; 97161; 97165; 97530; 97535; 99199; A9270; C1713; C1776; G0378; J0171; J0360; J0690; J1100; J1885; J1940; J2003; J2250; J2270; J2405; J2704; J2795; J3010; J3370; J7120

== ENCOUNTER 2025-01-07 16:11 | Outpatient (CLI) | payer OTHER, SELFPAY ==
--- NOTE | ~2025-01-07 | US_ITS ---
EXAMINATION: US venous doppler [facility] DATE: 01/07/2025 17:09 INDICATION: TECHNIQUE: Grayscale ultrasound images without and with compression and Doppler ultrasound images of the left lower extremity veins were obtained. COMPARISON: None. FINDINGS: There is noncompressible occlusive appearing thrombus in the distal left superficial femoral vein. Th e proximal and mid left superficial femoral vein along with the visualized portions of left common fe moral vein, profunda (deep) femoral vein, popliteal vein, peroneal veins, posterior tibial veins and greater saphenous vein outflow are patent. IMPRESSION: 1. No deep venous anastomosis in the distal left femoral vein. I notified Dr. Jackson of these findin gs at 5:15 PM. As requested notified the patient and relayed his request that she proceeded to the em ergency department. Reviewed, dictated and finalized at location A. IMPRESSION: 1. No deep venous anastomosis in the distal left femoral vein. I notified Dr. Jackson of these findings at 5:15 PM. As requested notified the patient and rela yed his request that she proceeded to the emergency department.
--- OUTSIDE RECORDS SUMMARY | 2025-01-07 17:37 | XMS_ITS | CONTINUITY OF CARE DOCUMENT ---
Author Name stephencolbyjamaica Address Unknown Organization [facility] Address [address] [place] [address] Phone [phone] Care Team Providers Care Appraiser Auditor Name Role Phone Shayan CORREA, Tameka Unavailable Shayan CORREA, Tameka Unavailable NAMRATA CORREA, JENSEN Unavailable [phone] INSURANCE PROVIDERS Payer name Policy type / Coverage type [place] red democr[employer] [facility] [employer] [id number]
== END 2025-01-07 16:12 | disposition home or self-care (01) ==
PROVIDERS: PCP Family Medicine; Visit Provider Orthopaedic Surgery
DX: I82.412 Acute embolism and thrombosis of left femoral vein (principal)
CPT/HCPCS: 93971

== ENCOUNTER 2025-01-07 19:18 | Emergency (ER) | payer OTHER, SELFPAY ==
[2025-01-07 19:20] VITALS: BP 151/82; PULSE 97; RESP 16; TEMP 36.7; O2SAT 97
[2025-01-07 19:43] VITALS: BP 130/80; PULSE 87; RESP 22; O2SAT 97
--- NOTE | 2025-01-07 20:05 | PC.NURSE ---
two unsuccessful attempts made to draw labs and obtain iv placement. pt states that she's not getting stuck again, absolutely not, I hate needles patient tearful and agitated at this time
--- NOTE | 2025-01-07 20:20 | ED_ITS ---
HPI - General Adult General Chief complaint: Extremity Injury, Lower Stated complaint: blood clot left leg Time Seen by Provider: 01/07/25 19:51 History of Present Illness HPI narrative: This is a 65-year-old female presenting for a DVT. Patient had a hip arthroplasty performed on December [address] Domingo. She developed some intermittent swelling of her left calf and had a outpatient ultrasound performed. The ultrasound showed a occlusive thrombus in the distal femoral vein. Patient has been on prophylactic Eliquis 2.5 mg b.i.d.. She has missed multiple doses. She denies any other complaints of PE at this time such as chest pain/difficulty breathing. Denies fevers chills headache abdominal pain urinary symptoms Related Data Allergies Allergy/AdvReac Type Severity Reaction Status Date / Time Penicillins Allergy Unknown Hives, Verified 01/07/25 19:22 FACE SWELLING PMFSH Past Medical History Medical History Osteoarthritis Anxiety Primary osteoarthritis of left hip Cigarette nicotine dependence Major depressive disorder, recurrent severe without psychotic features Primary hypertension Surgical History Surgical History History of bladder suspension procedure History of intestinal surgery 2013 for bowel obstruction History of hysterectomy 1995 Family History Family History Sibling Cerebrovascular accident Social History Social History Smoking packs per day: 20 Smoking cigarettes per day: 400.0 Years smoked: 52 Smoking pack-years: 1040.00 Smoking status: Former smoker Tobacco type: cigarettes Second hand tobacco smoke exposure: No Smoking end date: 10/24/24 Additional smoking assessment comments: NON-NICTONE VAPE X6/DAY Alcohol intake: never Alcohol use details: SOCIAL DRINKER IN PAST Substance use: current Substance use type: marijuana Other substance usage details: SMOKES MARIJUANA NIGHTLY Do You Feel Safe in your Home?: Yes Lack of Transportation: No Lack of Food: Never True Current Housing: I Have Housing Concerned About Future Housing: YES Difficulty Paying Gas/Electric Bills: No Difficulty Paying for Meds: No Currently Unemployed: No Education: Don't Know Difficulty w/ Childcare or Family Care: No Living arrangements: with family Additional living arrangements comments: ULISES Occupation/Education: retired Gender identity (if verbalized by the patient): Female Sexual Orientation (if Verbalized by the Patient): Straight or Heterosexual Spiritual care concerns: No Exam Narrative: APPEARANCE: No apparent distress. Head: atraumatic. EYES: EOMI, NOSE: Atraumatic NECK: Trachea midline RESPIRATORY: No increased rate of breathing CTAB, speaking in full sentences CARDIOVASCULAR: RRR, no peripheral edema ABDOMINAL: Non-distended MUSCULOSKELETAl: No obvious deformities NEURO: Alert. Moving 4/4 extremities SKIN:: Warm, dry. Normal color PSYCHIATRIC: Normal affect Course Vital Signs Vital signs: Vital Signs Temperature 98.1 F 01/07/25 19:20 Pulse Rate 97 01/07/25 19:20 Respiratory Rate 16 01/07/25 19:20 Blood Pressure 151/82 H 01/07/25 19:20 Pulse Oximetry 97 01/07/25 19:20 Oxygen Delivery Room Air 01/07/25 19:20 Temperature 98.1 F 01/07/25 19:20 Pulse Rate 87 01/07/25 19:43 Respiratory Rate 22 H 01/07/25 19:43 Blood Pressure 130/80 01/07/25 19:43 Pulse Oximetry 97 01/07/25 19:43 Oxygen Delivery Room Air 01/07/25 19:20 Medical Decision Making MDM Narrative Medical decision making narrative: -Course: 65-year-old female on prophylactic Eliquis 2.5 mg BD presenting with a DVT of her leg. Patient meets to missing multiple doses of her medication. As the patient has missed multiple doses this is not treatment failure with Eliquis. I spoke with the patient at length about the importance of taking her medications. We also discussed alternatives to Eliquis including Lovenox b.i.d. which would be the alternative treatment if she did have true treatment failure. Patient is adamantly refusing to give herself injections. She understands the risk of pulmonary embolism associated complications up to including cardiac arrest. She will be increased to full strength Eliquis 5 mg b.i.d.. She will follow-up with Dr. Domingo for further management. Consult discussion with Dr. Venegas (heme/onc) -DDX includes but is not limited to: DVT due to eliquis failure, dvt due to medication non-compliance. Vital Signs Vital Signs: Vital Signs Temperature 98.1 F 01/07/25 19:20 Pulse Rate 97 01/07/25 19:20 Respiratory Rate 16 01/07/25 19:20 Blood Pressure 151/82 H 01/07/25 19:20 Pulse Oximetry 97 01/07/25 19:20 Oxygen Delivery Room Air 01/07/25 19:20 Temperature 98.1 F 01/07/25 19:20 Pulse Rate 87 01/07/25 19:43 Respiratory Rate 22 H 01/07/25 19:43 Blood Pressure 130/80 01/07/25 19:43 Pulse Oximetry 97 01/07/25 19:43 Oxygen Delivery Room Air 01/07/25 19:20 Discharge Plan Discharge Clinical Impression: DVT (deep venous thrombosis), Non compliance w medication regimen Patient Disposition: Home Condition: Stable Instructions: Antibiotic Form, Apixaban (By mouth), Deep Vein Thrombosis (DC) Additional Instructions: You were seen in the emergency department for a DVT. It is important that you take 5 mg twice daily as instructed to treat your DVT. Missing doses could be hazardous your health. Please follow-up with Dr. Domingo in 1 week. Please return to the ED if he develops chest pain difficulty breathing or any new or worsening symptoms Patient Language: Belarusian Prescriptions: New Eliquis 5 mg tablet 5 mg PO BID 90 Days Qty: 180 0RF No Action acetaminophen 325 mg Tablet 650 mg PO Q4H Qty: 90 0RF Eliquis 2.5 mg Tablet 2.5 mg PO Q12HR Qty: 70 0RF oxycodone 5 mg Tablet 5 mg PO Q4H PRN (Reason: pain) Qty: 40 0RF calcium-vitamin D3-vitamin K [Citracal-D3 Soft Chew] 500 mg-1,000 unit-40 mcg tablet,chewable 1 tablet PO BID Qty: 60 5RF amlodipine 5 mg tablet 5 mg PO DAILY Qty: 90 1RF Patient Comments: QAM fluoxetine 20 mg capsule 20 mg PO DAILY Qty: 90 1RF Patient Comments: QAM lisinopril 10 mg tablet 10 mg PO DAILY Qty: 90 0RF Patient Comments: QAM Follow-up/Referrals: Cayden Sullivan MD [Primary Care Provider] - Graham Domingo MD [Physician] - 1 Week (ED F/u)
[2025-01-07] MEDS: APIXABAN 5 MG TABLET PO (21:09)
== END 2025-01-07 21:33 | disposition home or self-care (01) ==
PROVIDERS: Emergency Provider Emergency Medicine; PCP Family Medicine
DX: I82.412 Acute embolism and thrombosis of left femoral vein (principal); M19.90 Unspecified osteoarthritis, unspecified site; F41.9 Anxiety disorder, unspecified; F32.A Depression, unspecified; I10 Essential (primary) hypertension
CPT/HCPCS: 99283; A9270

== ENCOUNTER 2025-02-05 10:49 | Outpatient (CLI) | payer OTHER, SELFPAY ==
--- NOTE | ~2025-02-05 | US_ITS ---
LEFT LOWER EXTREMITY VENOUS ULTRASOUND Ordering provider: Graham Domingo MD History: . I82.412 - Acute embolism and thrombosis of left femoral vein . Comparison: None. FINDINGS: --COMMON FEMORAL: Patent and free of thrombus. Normal compressibility, phasic flow and augmentation. --PROXIMAL SUPERFICIAL FEMORAL: Patent and free of thrombus. Normal compressibility, phasic flow and augmentation. --DISTAL SUPERFICIAL FEMORAL: Patent and free of thrombus. Normal compressibility, phasic flow and au gmentation. --POPLITEAL: Patent and free of thrombus. Normal compressibility, phasic flow and augmentation. --POSTERIOR TIBIAL: Patent and free of thrombus. Normal compressibility, phasic flow and augmentation . IMPRESSION: Negative left lower extremity venous US. No deep vein thrombosis. Reviewed, dictated and finalized at location A.
== END 2025-02-05 10:50 | disposition home or self-care (01) ==
PROVIDERS: PCP Family Medicine; Visit Provider Orthopaedic Surgery
DX: I82.412 Acute embolism and thrombosis of left femoral vein (principal)
CPT/HCPCS: 93971

== ENCOUNTER 2025-06-30 08:02 | Outpatient (CLI) | payer OTHER, SELFPAY ==
[2025-06-30 09:33] LABS: Hematocrit 44.6 % (37.0-47.0); Hemoglobin 13.9 g/dL (12.0-15.0); Immature Granulocyte Percent A 0.2 % (0-0.5); Lymphocytes Absolute Auto 3.20 K/mm3 (0.9-3.2); Mean Corpuscular HGB Conc 31.2 g/dl (32-36); Mean Corpuscular Hemoglobin 29.1 pg (26-34); Mean Corpuscular Volume 93.5 fl (80-100); Nucleated Red Blood Cells Absolute Auto 0.000 K/mm3 (0.0-0.012); Nucleated Red Blood Cells Perc 0.0 % (0.0-0.2); Platelet Count Result 370 k/mm3 (150-375); Red Blood Count 4.77 M/mm3 (4.2-5.4); White Blood Count 6.5 K/mm3 (4.5-10.0)
[2025-06-30 09:41] LABS: Hemoglobin A1C 5.4 % (<5.7)
[2025-06-30 09:50] LABS: Albumin Level 4.0 g/dL (3.5-5.1); Anion Gap 7 mmol/L (4-12); Blood Urea Nitrogen 17 mg/dL (7-17); Calcium 8.9 mg/dL (8.4-10.2); Carbon Dioxide 27 mmol/L (22-30); Chloride 104 mmol/L (98-107); Estimated Glomerular Filt Rate > 60; Glucose 79 mg/dL (65-110); Potassium 3.4 mmol/L (3.4-5.0); Sodium 138 mmol/L (137-145)
== END 2025-06-30 08:03 | disposition home or self-care (01) ==
LOC: ANHSURGERY 08:05
PROVIDERS: PCP Family Medicine; Visit Provider Orthopaedic Surgery
DX: Z01.818 Encounter for other preprocedural examination (principal); M16.11 Unilateral primary osteoarthritis, right hip
CPT/HCPCS: 80048; 80307; 82040; 83036; 85025; 86850; 86900; 86901; 87081; 87147; 87186